=== PATIENT | male | born 1985 | race Caucasian/White ===

== ENCOUNTER → 2022-09-29 | Outpatient (CLI) | payer MEDICAID, SELFPAY ==
--- NOTE | 2022-09-29 14:47 | CT_ITS ---
STUDY: CT MAXILLOFACIAL SINUSES REASON FOR EXAM: Male, 37 years old. Right-sided facial pain. Her pain. Status post ear infection. History of prior sinus surgery. RADIATION DOSAGE (If Supplied By Facility): CTDIvol = ( 28.14 ) mGy, DLP = ( 711.01 ) mGycm TECHNIQUE: The patient was scanned in a multi detector CT scanner. High resolution axial imaging was performed without the administration of intravenous contrast material. Sagittal and coronal images were reconstructed. Individualized dose optimization techniques were used for this CT. COMPARISON: None. FINDINGS: FRONTAL SINUSES: Normal aeration, without mucosal inflammatory disease. ETHMOIDAL SINUSES: Minimal mucoperiosteal reaction in the anterior air cells. MAXILLARY SINUSES: Normal aeration, without mucosal inflammatory disease. SPHENOIDAL SINUSES: Normal aeration, without mucosal inflammatory disease. There is patency of the bilateral maxillary infundibuli with normal uncinate processes, ethmoid bullae, and hiatus semilunaris. Normal bilateral middle turbinates. Normal bilateral inferior turbinates. Normal midline nasal septum. There is patency of the bilateral nasal airways. The visualized osseous structures are normal. The visualized bilateral orbital contents are normal. Normal mastoid sinuses. CT/Sinus/Facial Bone IMPRESSION: Minimal ethmoid sinusitis. Electronically Signed: Collin Carr DO at 22:44 EST ,
== END | disposition home or self-care (01) ==
LOC: CT 14:45
PROVIDERS: Referring Provider Otolaryngology; Visit Provider Otolaryngology
DX: J32.2 Chronic ethmoidal sinusitis (principal)
CPT/HCPCS: 70486

== ENCOUNTER → 2022-11-30 | Outpatient (CLI) | payer MEDICAID, SELFPAY ==
--- NOTE | 2022-11-30 | ETH_PTH ---
PATIENT: TOM HOROWITZ LOC: [facility] U#:[id number] AGE/SX: 37/M ROOM: RE11/30/[address]: Dr. Drake Rosales MD : 1985 BED: DIS: 11/30/2022 SPEC #: [id number] RECD: 11/30/22 14:59 STATUS: MAGGIE REAlejandra #: [id number] GURDEEP: 11/30/22 00:[address]: Drake Rosales DEPT: SURGICAL PATHOLOGY RECD BY: Dale Gomes ENTERED: 12/01/22 08:39 SP TYPE: ETH TISS OTHR DR: No Primary Care Phys [facility] Tissues: A - Ethmoid sinus, NOS B - Ethmoid sinus, NOS Procedures: Decalcification bone/plaque Surgery Specimen Level IV HEADER OPERATION: Functional endoscopic sinus surgery, right myringotomy with tube PRE-OP DIAGNOSIS: Chronic sinusitis, chronic serous otitis media TISSUE SUBMITTED: A ? Right sinus contents, B ? Left sinus contents MICROSCOPIC DIAGNOSIS A. Right sinus contents: Fragments of respiratory mucosa with chronic inflammation and bone. B. Left sinus contents: Fragments of respiratory mucosa with chronic inflammation and bone. FABRIZIO:bradly 12/05/2022 MICROSCOPIC DESCRIPTION Slides are reviewed. GROSS DESCRIPTION A - Received in fixative is one container labeled with the patient's name and designated right sinus contents. The specimen consists of multiple irregular fragments of wade soft tissue mixed with fragments of bone that in aggregate measure 2.0 x 2.0 x 0.3 cm. The specimen is totally submitted in one cassette after decalcification. B - Received in fixative is one container labeled with the patient's name and designated left sinus contents. The specimen consists of multiple irregular fragments of wade soft tissue mixed with fragments of bone that in aggregate measure 2.5 x 2.5 x 0.3 cm. The specimen is totally submitted in one cassette after decalcification. / FABRIZIO:bradly 12/01/2022 TC:3 CPT: 64661 x2, 00905 x2
== END | disposition home or self-care (01) ==
LOC: LABSPEC 15:25
PROVIDERS: Referring Provider Otolaryngology; Visit Provider Otolaryngology
DX: J32.9 Chronic sinusitis, unspecified (principal); H66.90 Otitis media, unspecified, unspecified ear
CPT/HCPCS: 88305; 88311

== ENCOUNTER → 2023-10-19 | Outpatient (CLI) | payer MEDICAID, SELFPAY ==
--- OUTSIDE RECORDS SUMMARY | 2023-10-19 16:19 | XMS RPT_ITS | CCD ---
Author Name Unknown Address [address] [place] [address] Organization [facility] Care Team Providers Care Logging Supervisor Name Role Phone Chet Amin Unavailable Unavailable Chet Amin Unavailable Unavailable Zee Anderson Unavailable Unavailable Zee Anderson MD Primary Care Provider Physician, No Pcp Primary Care Provider UnavailPONCHO Oliva Attending Unavailable PHYSICIAN, NO PCP Primary Care Unavailable Zee Anderson MD Primary Care Provider ZEE ANDERSON Primary Care Unavailable Otilia MCKEON Attending Unavailable ZEE ANDERSON Primary Care Unavailable Otilia MCKEON Referring Unavailable ZEE ANDERSON Primary Care Unavailable Otilia MCKEON Attending Unavailable SCOTT LOO Attending Unavailable HILARY ZELAYA Referring Unavailable ZEE ANDERSON Primary Care Unavailable HILARY ZELAYA Referring Unavailable ZEE ANDERSON Primary Care Unavailable ZEE ANDERSON Primary Care Unavailable Otilia MCKEON Referring Unavailable ZEE ANDERSON Primary Care Unavailable Medications Current Medications Medication Drug Class(es) Dates Sig (Normalized) Sig (Original) amoxicillin 875 mg / clavulanate 125 mg oral tablet (1 source) Penicillin-class Antibacterial Start: 08-29-2022 End: 09-08-2022 take 1 tablet by mouth twice daily amoxicillin-clav ulanic acid (AUGMENTIN) 875-125 mg per tablet Indications: Chronic purulent otitis media of right ear Take 1 tablet by mouth twice daily for 10 days. 20 tablet 0 08/29/2022 09/08/2022 Active Completed/Discontinued Medications Medication Drug Class(es) Dates Sig (Normalized) Sig (Original) atomoxetine 40 mg oral capsule (1 source) Norepinephrine Reuptake Inhibitor Start: 01-10-2022 take 1 capsule by mouth once daily atomoxetine (STRATTERA) 40 mg capsule Indications: Adult ADHD Take 1 capsule by mouth once daily. 30 capsule 1 01/10/2022 Active Problems Active Problems Problem Classification Problem Date Documented Date Episodic/Chronic Abdominal pain (1 source) Epigastric pain; Translations: [Epigastric pain] Episodic Alcohol-related disorders (11 sources) Alcohol abuse; Translations: [Alcohol abuse, uncomplicated] Onset: 02-15-2022 Chronic Alcohol-related disorders (1 source) Alcohol intoxication; Translations: [Alcohol use, unspecified with intoxication, uncomplicated] Episodic Anxiety disorders (12 sources) Mixed anxiety and depressive disorder; Translations: [Anxiety disorder, unspecified] Onset: 04-18-2019 04-18-2019 Chronic Attention-deficit, conduct, and disruptive behavior disorders (8 sources) Adult attention deficit hyperactivity disorder ; Translations: [Attention-deficit hyperactivity disorder, unspecified type] Onset: 04-19-2022 Chronic Esophageal disorders (9 sources) Gastroesophageal reflux disease; Translations: [Gastro-esophageal reflux disease without esophagitis] Onset: 06-19-2017 06-19-2017 Chronic Gastritis and duodenitis (2 sources) Unspecified chronic gastritis without bleeding; Translations: [Atrophic gastritis, without mention of hemorrhage] Onset: 01-13-2023 Chronic Other disorders of stomach and duodenum (1 source) Nonulcer dyspepsia; Translations: [Functional dyspepsia] Episodic Other ear and sense organ disorders (1 source) Excessive cerumen in ear canal ; Translations: [Impacted cerumen, right ear] Episodic Other inflammatory condition of skin (1 source) Itching of skin; Translations: [Pruritus, unspecified] Episodic Other nutritional; endocrine; and metabolic disorders (1 source) Excessive thirst; Translations: [Polydipsia] Episodic Other skin disorders (1 source) Excessive sweating; Translations: [Generalized hyperhidrosis] Episodic Otitis media and related conditions (2 sources) Chronic purulent otitis media; Translations: [Other chronic suppurative otitis media, right ear] Onset: 08-30-2022 Chronic Residual codes; unclassified (1 source) Pain; Translations: [Pain, unspecified] 05-03-2023 Episodic Residual codes; unclassified (1 source) Pain, unspecified; Translations: [Pain] Onset: 05-03-2023 Episodic Sprains and strains (1 source) Sprain of left acromioclavicular ligament; Translations: [Sprain of left acromioclavicular joint, initial encounter] 05-03-2023 Episodic Suicide and intentional self-inflicted injury (1 source) Suicidal thoughts; Translations: [Suicidal ideations] Episodic Past or Other Problems Problem Classification Problem Date Documented Date Episodic/Chronic Allergic reactions (9 sources) Environmental allergy; Translations: [Other allergy status, other than to drugs and biological substances] Onset: 02-15-2022 Episodic Bacterial infection; unspecified site (1 source) Helicobacter pylori [H. pylori] as the cause of diseases classified elsewhere; Translations: [Chronic Helicobacter pylori gastritis] Onset: 01-13-2023 Episodic Cardiac dysrhythmias (9 sources) Palpitations; Translations: [Palpitations] Onset: 06-19-2017 06-19-2017 Episodic Conditions associated with dizziness or vertigo (2 sources) Dizziness; Translations: [Dizziness and giddiness] Onset: 08-30-2022 Episodic Genitourinary symptoms and ill-defined conditions (2 sources) Increased frequency of urination; Translations: [Frequency of micturition] Onset: 08-30-2022 Episodic Other inflammatory condition of skin (1 source) Pruritus, unspecified; Translations: [Pruritus] Onset: 01-13-2023 Episodic Other nutritional; endocrine; and metabolic disorders (1 source) Polydipsia; Translations: [Polydipsia] Onset: 08-30-2022 Episodic Other screening for suspected conditions (not mental disorders or infectious disease) (2 sources) Patient encounter status; Translations: [Encounter for screening for lipoid disorders] Onset: 08-30-2022 Episodic Other skin disorders (1 source) Generalized hyperhidrosis; Translations: [Sweating increase] Onset: 08-30-2022 Episodic Otitis media and related conditions (9 sources) Chronic otitis media; Translations: [Otitis media, unspecified, unspecified ear] Onset: 05-02-2017 05-02-2017 Episodic Residual codes; unclassified (9 sources) Tobacco use and exposure - finding; Translations: [Tobacco use] Onset: 05-02-2017 05-02-2017 Episodic Residual codes; unclassified (9 sources) FH: premature coronary heart disease; Translations: [Family history of ischemic heart disease and other diseases of the circulatory system] Onset: 05-02-2017 05-02-2017 Episodic Results Test Name Value Interpretation Reference Range Facil ity Vital Signs Date Time Vital Sign Value Performing Clinician Joi colon 01-13-2023 10:38-0400 Body weight 83.46 kg NA Mckeon PA-C Work Phone: [facility] 01-13-2023 10:38-0400 Diastolic blood pressure 76 mm[Hg] NA Mckeon PA-C Work Phone: [facility] 01-13-2023 10:38-0400 Heart rate 74 /min NA Mckeon PA-C Work Phone: [facility] 01-13-2023 10:38-0400 Respiratory rate 16 /min NA Mckeon PA-C Work Phone: [facility] 01-13-2023 10:38-0400 SaO2% (BldA) [Mass fraction] 99 % NA Mckeon PA-C Work Phone: [facility] 01-13-2023 10:38-0400 Systolic blood pressure 120 mm[Hg] NA Mckeon PA-C Work Phone: [facility] 08-29-2022 08:48-0500 Body weight 80.74 kg NA Mckeon PA-C Work Phone: [facility] 08-29-2022 08:48-0500 Diastolic blood pressure 78 mm[Hg] NA Mckeon PA-C Work Phone: [facility] 08-29-2022 08:48-0500 Heart rate 76 /min NA Mckeon PA-C Work Phone: [facility] 08-29-2022 08:48-0500 Respiratory rate 18 /min NA Mckeon PA-C Work Phone: [facility] 08-29-2022 08:48-0500 SaO2% (BldA) [Mass fraction] 98 % NA Mckeon PA-C Work Phone: [facility] 08-29-2022 08:48-0500 Systolic blood pressure 118 mm[Hg] NA Mckeon PA-C Work Phone: [facility] 04-18-2022 15:36-0400 Body weight 74.84 kg NA Mckeon PA-C Work Phone: [facility] 04-18-2022 15:36-0400 Diastolic blood pressure 66 mm[Hg] NA Mckeon PA-C Work Phone: [facility] 04-18-2022 15:36-0400 Heart rate 72 /min NA Mckeon PA-C Work Phone: [facility] 04-18-2022 15:36-0400 Respiratory rate 16 /min NA Mckeon PA-C Work Phone: [facility] 04-18-2022 15:36-0400 SaO2% (BldA) [Mass fraction] 98 % NA Mckeon PA-C Work Phone: [facility] 04-18-2022 15:36-0400 Systolic blood pressure 110 mm[Hg] NA Mckeon PA-C Work Phone: [facility] 02-15-2022 14:59-0400 Body weight 73.94 kg Maxine Haagen SOFTWARE ANALYST.METAL WIRE COATING OPERATOR Work Phone: [facility] 02-15-2022 14:59-0400 Diastolic blood pressure 94 mm[Hg] Maxine Haagen SOFTWARE ANALYST.METAL WIRE COATING OPERATOR Work Phone: [facility] 02-15-2022 14:59-0400 Heart rate 72 /min Maxine Haagen SOFTWARE ANALYST.METAL WIRE COATING OPERATOR Work Phone: [facility] 02-15-2022 14:59-0400 Respiratory rate 18 /min Maxine Haagen SOFTWARE ANALYST.METAL WIRE COATING OPERATOR Work Phone: [facility] 02-15-2022 14:59-0400 SaO2% (BldA) [Mass fraction] 97 % Maxine Haagen SOFTWARE ANALYST.METAL WIRE COATING OPERATOR Work Phone: [facility] 02-15-2022 14:59-0400 Systolic blood pressure 142 mm[Hg] Maxine Haagen SOFTWARE ANALYST.METAL WIRE COATING OPERATOR Work Phone: [facility] 01-17-2022 07:12-0400 Diastolic blood pressure 64 mm[Hg] Poncho Jasso MD Work Phone: [facility] 01-17-2022 07:12-0400 Heart rate 94 /min Poncho Jasso MD Work Phone: [facility] 01-17-2022 07:12-0400 Respiratory rate 15 /min Poncho Jasso MD Work Phone: [facility] 01-17-2022 07:12-0400 SaO2% (BldA) [Mass fraction] 98 % Poncho Jasso MD Work Phone: [facility] 01-17-2022 07:12-0400 Systolic blood pressure 123 mm[Hg] Poncho Jasso MD Work Phone: [facility] 01-16-2022 22:59-0400 Body height 177.8 cm Poncho Jasso MD Work Phone: [facility] 01-16-2022 22:59-0400 Body mass index (BMI) [Ratio] 23.53 kg/m2 Poncho Jasso MD Work Phone: [facility] 01-16-2022 22:59-0400 Body weight 74.39 kg Poncho Jasso MD Work Phone: [facility] 01-16-2022 21:57-0400 Body temperature 97.81 [degF] Poncho Jasso MD Work Phone: [facility] 01-10-2022 09:43-0400 Body weight 74.39 kg Maxine Mares SOFTWARE ANALYST.METAL WIRE COATING OPERATOR Work Phone: [facility] 01-10-2022 09:43-0400 Diastolic blood pressure 86 mm[Hg] Maxine Haagen SOFTWARE ANALYST.METAL WIRE COATING OPERATOR Work Phone: [facility] 01-10-2022 09:43-0400 Heart rate 86 /min Maxine Haagen SOFTWARE ANALYST.METAL WIRE COATING OPERATOR Work Phone: [facility] 01-10-2022 09:43-0400 Respiratory rate 18 /min Maxine Haagen SOFTWARE ANALYST.METAL WIRE COATING OPERATOR Work Phone: [facility] 01-10-2022 09:43-0400 SaO2% (BldA) [Mass fraction] 98 % Maxine Mares SOFTWARE ANALYST.METAL WIRE COATING OPERATOR Work Phone: [facility] 01-10-2022 09:43-0400 Systolic blood pressure 118 mm[Hg] Maxine Mares SOFTWARE ANALYST.METAL WIRE COATING OPERATOR Work Phone: [facility] Encounters Encounter Date Encounter Type Care Provider Facility Start: 05-03-2023 End: 05-03-2023 ambulatory SCOTT HAWKINS Harjinder Facility:[facility] Start: 05-03-2023 End: 05-03-2023 Patient encounter procedure Scott Ross LANDRY Work Phone: [facility] Procedures Date Procedure Procedure Detail Performing Clinician Start: 08-29-2022 Urnls dip stick/tabl et rgnt auto w/o microscopy M Hakan Mckeon PA-C Work Phone: Start: 01-16-2022 Drug tst prsmv instr mnt chem analyzers pr date Poncho Jasso MD Work Phone: Start: 01-16-2022 ACETAMINOPHEN LEVEL Jose De Jesus shauna Jasso MD Work Phone: Start: 01-16-2022 Comprehensive metabo lic panel Poncho Jasso MD Work Phone: Start: 01-16-2022 Ethanol [Mass/volume ] in Serum or Plasma Poncho Jasso MD Work Phone: Start: 01-16-2022 SALICYLATE LEVEL Gerard Jasso MD Work Phone: Plan of Treatment Date Care Activity Detail Author Start: 06-20-2028 DTaP,Tdap,and Td Vac cines (2 - Td or Tdap) DTaP,Tdap,and Td Vaccines (2 - Td or Tdap) [facility] Start: 08-30-2027 LIPID SCREEN LIPID SCREEN [facility] Start: 06-02-2023 Influenza vaccination [facility] Start: 01-13-2023 End: 03-15-2023 Comprehensive metabolic 2000 panel - Serum or Plasma [facility] Work Phone: Immunizations Immunization Date Immunization Notes Care Provider Skinny hinds 06-20-2018 tetanus and diphther ia toxoids, adsorbed, preservative free, for adult use (5 Lf of tetanus toxoid and 2 Lf of diphtheria toxoid) Maxine Mares APRN.METAL WIRE COATING OPERATOR Work Phone: [facility] 06-05-2014 TD(adult) unspecifie d formulation RICHARD Mckeon PA-C Work Phone: [facility] Payers Date Payer Category Payer Medicaid [id number] 2022 Medicaid [employer] [id number] 2022-Present [phone] [address] [place] [address] Medicaid [id number] 2022 Medicaid [id number] 2022 Medicaid [id number] 2018 Unknown 1986 Unknown [id number] Private Health Insurance [id number] Social History Date Type Detail Facility Start: 04-18-2019 End: 08-29-2022 Tobacco smoking status GAIS Smokes tobacco daily [facility] Work Phone: History of tobacco use Cigarette Smoker C [facility] Work Phone: Start: 04-18-2019 End: 10-14-2022 Cigarettes smoked current (pack per day) - Reported 1 [facility] Start: 04-18-2019 End: 08-29-2022 Tobacco use and exposure User of smokeless tobacco [facility] Work Phone: History of tobacco use Chews Tobacco [facility] Work Phone: Start: 01-10-2022 End: 05-03-2023 Alcohol intake Current drinker of alcohol (finding) [facility] Start: 10-06-2021 History SDOH Alcohol Comment less than a 12 pk weekly [facility] Start: 01-10-2022 End: 08-29-2022 Tobacco Comment quit smoking 11/2021. [facility] Start: 1985 Sex Assigned At Not on file C [facility] Start: 01-16-2022 Tobacco use and exposure Smokeless tobacco non-user [facility] Start: 01-16-2022 Alcohol intake Not Asked [facility] Start: 01-06-2022 End: 08-29-2022 Exposure to SARS-CoV-2 (event) Not sure [facility] Start: 10-14-2022 End: 05-03-2023 Tobacco use panel [facility] Adult Depression Screening Assessment 2 [facility] Clinical Notes 01-10-2022 to 05-03-2023 Scott Hawkins V, DO - 05/03/2023 3:22 PM KAREENTangela atkinson Ma 05/03/2023 3:04 PM ED Hakan Mckeon PA-C - 01/13/2023 10:43 AM EDMICHEAL Mckeon PA-C - 08/29/2022 8:53 AM EST Note Date & Type Note Facility 05-03-2023 Note HNO ID: [id number] Author: Scott Hawkins V, DO Service: ? Author Type: Physician Type: Progress Notes Filed: 05/03/2023 3:24 PM Note Text: SUBJECTIVE: Mg Glover is a 38 year old male who is here for a left shoulder injury. It occurred 1 1/2 weeks ago when he fell onto the top of the shoulder. Symptoms include pain over the top of the shoulder with movement. He has tried icy hot. PAST MEDICAL HISTORY Diagnosis Date H. pylori infection 10/18/2019 treated. Stool negative 11/12/19 PAST SURGICAL HISTORY Procedure Laterality Date EGD 11/17/2021 PAST SURGICAL HISTORY OF myringotomy tubes. EXAM: General: cooperative and NAD Location: Left shoulder: tenderness at the AC joint with direct palpation and with resisted shoulder abduction internal rotation and posterior extension. Negative for: crepitation or instability Neurovascular: intact X-ray: no evidence of fracture or acute abnormality IMPRESSION: AC sprain left shoulder PLAN: Continue with range of motion and strengthening exercises as well as symptomatic relief with topical analgesics. Expect 4 to 6 weeks for full healing Recheck if symptoms worsen or fail to resolve Scott Hawkins DO [facility] 05-03-2023 Note HNO ID: [id number] Author: Tangela Ontiveros Ma Service: ? Author Type: ? Type: Progress Notes Filed: 05/03/2023 3:24 PM Note Text: Patient presents with: New Patient: Left shoulder pain - Referred by Hilary ERAZO ROOMING INTAKE FLOWSHEET DATA Pain Pain Level: 6 Pain Location: Shoulder-Left Description: Aching Duration Amount of Time: 10 Duration Units: Days Frequency: Continuous Intervention/Comfort measure: Medication Patient states 10 days ago he started having pain in his left shoulder. He noticed he has a lump on top of his shoulder. Mornings are worse but gets better as the day goes on. He also has had shoulder blade pain that started 5/6 years. No specific injuries. Taking Ibuprofen for the pain and helps. X-rays done on 05/02/23. [facility] 05-03-2023 History of Presen t illness Narrative SUBJECTIVE: Mg Glover is a 38 year old male who is here for a left shoulder injury. It occurred 1 1/2 weeks ago when he fell onto the top of the shoulder. Symptoms include pain over the top of the shoulder with movement. He has tried icy hot. PAST MEDICAL HISTORY Diagnosis Date H. pylori infection 10/18/2019 treated. Stool negative 11/12/19 PAST SURGICAL HISTORY Procedure Laterality Date EGD 11/17/2021 PAST SURGICAL HISTORY OF myringotomy tubes. EXAM: General: cooperative and NAD Location: Left shoulder: tenderness at the AC joint with direct palpation and with resisted shoulder abduction internal rotation and posterior extension. Negative for: crepitation or instability Neurovascular: intact X-ray: no evidence of fracture or acute abnormality IMPRESSION: AC sprain left shoulder PLAN: Continue with range of motion and strengthening exercises as well as symptomatic relief with topical analgesics. Expect 4 to 6 weeks for full healing Recheck if symptoms worsen or fail to resolve Scott Hawkins DO Patient presents with: New Patient: Left shoulder pain - Referred by Hilary Zelaya AMB ROOMING INTAKE FLOWSHEET DATA Pain Pain Level: 6 Pain Location: Shoulder-Left Description: Aching Duration Amount of Time: 10 Duration Units: Days Frequency: Continuous Intervention/Comfort measure: Medication Patient states 10 days ago he started having pain in his left shoulder. He noticed he has a lump on top of his shoulder. Mornings are worse but gets better as the day goes on. He also has had shoulder blade pain that started 5/6 years. No specific injuries. Taking Ibuprofen for the pain and helps. X-rays done on 05/02/23. documented in this encounter [facility] 05-02-2023 Note HNO ID: [id number] Author: Hilary Zelaya APRN.METAL WIRE COATING OPERATOR Service: ? Author Type: Nurse Practitioner Type: Progress Notes Filed: 05/02/2023 5:56 PM Note Text: Subjective Patient came in with complaints of left shoulder pain. Patient says it happens a week and a half ago. Patient says he fell off the truck and landed on his shoulder. Patient says it only hurts in certain positions. Patient denies numbness tingling or loss of feeling. The history is provided by the patient. No foreign language stenographer was used. Review of Systems Constitutional: Negative. Skin: Negative. Objective Physical Exam Constitutional: Appearance: Normal appearance. Pulmonary: Effort: Pulmonary effort is normal. Musculoskeletal: Arms: Comments: Patient is experiencing the pain in the areas marked above. No signs of deformity. Patient passed empty can test but failed scratch test. Range of motion is normal but patient experiences pain when shoulder is lifted completely up. Neurological: Mental Status: He is alert. PAST MEDICAL HISTORY Diagnosis Date H. pylori infection 10/18/2019 treated. Stool negative 11/12/19 PAST SURGICAL HISTORY Procedure Laterality Date EGD 11/17/2021 PAST SURGICAL HISTORY OF myringotomy tubes. ALLERGIES Patient has no known allergies. MEDICATIONS citalopram (CELEXA) 20 mg tablet 1 tablet by mouth daily pantoprazole DR (PROTONIX) 40 mg tablet Take 1 tablet by mouth daily before breakfast. Take on empty stomach, 1/2 hr before meal. FAMILY HISTORY Problem Relation Age of Onset None Mother other (cabg) Father started at age ? 50. None Brother 2 brothers. Social History Tobacco Use Smoking status: Every Day Packs/day: 1.00 Years: 15.00 Total pack years: 15.00 Types: Cigarettes Smokeless tobacco: Current Types: Chew Tobacco comments: quit smoking 11/2021. Substance Use Topics Alcohol use: Yes Comment: less than a 12 pk weekly Drug use: No ASSESSMENT/PLAN: 1. Pain - ICD9: 780.96, ICD10: R52 - XR SHOULDER GENERAL 3V OR MORE AP/TRUE AP/OTHER LEFT * * * * Physician Interpretation * * * * EXAMINATION: XR SHLDR >/=3V AP/ANGELITO AP/OTHR LT PATIENT/TECHNOLOGIST PROVIDED HISTORY: Pain over the AC joint and scapula on the left side following a fall 1.5 weeks ago CLINICAL INFORMATION: 38 years old Male with Pain TECHNIQUE: XR SHLDR >/=3V AP/ANGELITO AP/OTHR LT Laterality: LEFT Number of different views (projections): 3 COMPARISON: None. RESULT: No fracture or dislocation. Glenohumeral and acromioclavicular joint spaces are maintained. Acromiohumeral interval is maintained. IMPRESSION IMPRESSION: No acute osseous abnormality. Director Style: DARIUS Transcribe Date/Time: May 02 2023 5:26P Dictated by : BESS MCMANUS DO - CONSULT TO ORTHOPAEDICS Appointment was made for tomorrow at 3 PM with orthopedics to follow-up for possible further testing due to pain. Was okay with this care plan. Hilary Zelaya APRN.[facility] 05-02-2023 Note HNO ID: [id number] Author: Myranda Beltran RT(R) Service: Radiology Author Type: Technologist Type: Progress Notes Filed: 05/02/2023 5:23 PM Note Text: Radiology Service Progress Note PATIENT NAME: Mg Glover DATE OF SERVICE: May 02, 2023 TIME: 5:13 PM PATIENT IDENTITY VERIFICATION COMPLETED USING TWO (2) IDENTIFIERS: Name and Date of confirmed by patient verbally. FALL SCREENING: Has the patient had 2 falls in the last year or 1 fall with injury or currently using an Ambulatory Assistive Device (Walker, Cane, Wheelchair, Crutches, etc.)? No PATIENT GENDER DATA: Male PATIENT RELEVANT IMPLANT DATA REVIEWED: Yes RADIOLOGY DEPARTMENT: General X-ray: Exam(s) Completed: Upper Extremity X-Ray(s): Shoulder, AP / TRUE AP / AXILLARY left PERIPHERAL IV DATA: Not applicable SIGNED BY: RT Shaggy(R) May 02, 2023 5:13 PM [facility] 01-13-2023 Note HNO ID: [id number] Author: Otilia Mckeon PA-C Service: ? Author Type: Physician Safety Patrol Officer Type: Progress Notes Filed: 01/13/2023 11:56 AM Note Text: 37 year old male with c/o itching with whole body skin irritation. Feeling hungry all the time Always has gurgling in stomach, feels nauseated. Bowels have changed, 3-4 times, soft, mushy, small amount, snot in it . Feels like he gets faint like he might pass out, especially at wok with bending over a lot. Happened in 2019 Taking benadryl 25mg four times a day which lessens feeling At first thought it was allergies. No sinus congestion. A little sneezing. Recent sinus surgery [facility] Dr. Patton No cough or difficulty breathing Urinates frequently: 6 x 24oz bottle of water ETOH under 12pk a week. Itching is more with moving around. Last time this happened ended up testing + H.Pylori: 11/12/2019 H. Pylori negative, 10/18/2019 + H. Pylori Remains on pantoprazole daily, sometimes twice a day Feeling good emotionally. Taking Celexa 20mg daily HISTORIES FAMILY HISTORY Problem Relation Age of Onset None Mother other (cabg) Father started at age ? 50. None Brother 2 brothers. PAST MEDICAL HISTORY Diagnosis Date H. pylori infection 10/18/2019 treated. Stool negative 11/12/19 PAST SURGICAL HISTORY Procedure Laterality Date EGD 11/17/2021 PAST SURGICAL HISTORY OF myringotomy tubes. Social History Tobacco Use Smoking status: Every Day Packs/day: 1.00 Years: 15.00 Pack years: 15.00 Types: Cigarettes Smokeless tobacco: Current Types: Chew Tobacco comments: quit smoking 11/2021. Substance Use Topics Alcohol use: Yes Comment: less than a 12 pk weekly Drug use: No ACTIVE PROBLEM LIST Chronic Otitis Media Tobacco Use Family History of Early Cad Palpitations Gastroesophageal Reflux Disease Anxiety and Depression Alcohol Abuse Environmental Allergies Adult Adhd Current Outpatient Medications Medication Sig Dispense Refill citalopram (CELEXA) 20 mg tablet 1 tablet by mouth daily [address] (PROTONIX) 40 mg tablet Take 1 tablet by mouth daily before breakfast. Take on empty stomach, 1/2 hr before meal. 90 tablet 2 No current facility-administered medications for this visit. HEPATITIS B(1 of 3 - 3-dose series) Never done COVID-19 VACCINE(1) Never done PNEUMOCOCCAL(1 - PCV) Never done HEPATITIS C SCREENING Never done HIV SCREENING Never done DTAP,TDAP,TD(1 - Tdap) due on 06/21/2018 EXAM: BP 120/76 Pulse 74 Resp 16 Wt 83.5 kg (184 lb) SpO2 99% BMI 26.40 kg/m? Pleasant well appearing adult male in no acute distress. Alert and oriented all spheres. Normal affect and cognition. Speech normal. No deficits to learning or comprehension. Skin warm, dry, pink to lips and nailbeds. Normal turgor. No rashes or lesions. Respirations regular and unlabored. HEENT: NCAT. No scleral icterus or conjunctival injection. TM's clear. Nose and oropharynx free from injection or lesion. Oral membranes moist and pink. No cervical lymph nodes. Thyroid non-tender, no masses, or enlargement. Carotids pulses 2+/4+ without bruits. No JVD with HOB at 30 degrees. Abdomen: active bowel sounds throughout, soft, nontender, no masses or organomegaly. No CVAT. Extrem: no clubbing or cyanosis. Edema: none. Extremities are warm and pink with prompt capillary refill. ASSESSMENT/PLAN: 1. Pruritus - ICD9: 698.9, ICD10: L29.9 (primary diagnosis) Unclear etiology Controled with benadryl: discussed once a day antihistamines available but will continue current. Identifies association with H.Pylori in past with above GI sx. Check labs and proceed based on results. - CBC + DIFF - COMP METABOLIC PANEL - LIPASE BLD - IGE BLD - H PYLORI AG BY EIA,STOOL - OCCULT BLD EXAM-DIAG - FECAL LACTOFERRIN/LEUKOCYTES - CALPROTECTIN,FECAL 2. Chronic Helicobacter pylori gastritis - ICD9: 535.10, 041.86, ICD10: K29.50, B96.81 As above - CBC + DIFF - COMP METABOLIC PANEL - LIPASE BLD - IGE BLD - H PYLORI AG BY EIA,STOOL - OCCULT BLD EXAM-DIAG - FECAL LACTOFERRIN/LEUKOCYTES - CALPROTECTIN,FECAL M Hakan Mckeon PA-C [facility] 01-13-2023 History of Presen t illness Narrative 37 year old male with c/o itching with whole body skin irritation. Feeling hungry all the time Always has gurgling in stomach, feels nauseated. Bowels have changed, 3-4 times, soft, mushy, small amount, snot in it . Feels like he gets faint like he might pass out, especially at wok with bending over a lot. Happened in 2019 Taking benadryl 25mg four times a day which lessens feeling At first thought it was allergies. No sinus congestion. A little sneezing. Recent sinus surgery [facility] Dr. Patton No cough or difficulty breathing Urinates frequently: 6 x 24oz bottle of water ETOH under 12pk a week. Itching is more with moving around. Last time this happened ended up testing + H.Pylori: 11/12/2019 H. Pylori negative, 10/18/2019 + H. Pylori Remains on pantoprazole daily, sometimes twice a day Feeling good emotionally. Taking Celexa 20mg daily HISTORIES FAMILY HISTORY Problem Relation Age of Onset None Mother other (cabg) Father started at age ? 50. None Brother 2 brothers. PAST MEDICAL HISTORY Diagnosis Date H. pylori infection 10/18/2019 treated. Stool negative 11/12/19 PAST SURGICAL HISTORY Procedure Laterality Date EGD 11/17/2021 PAST SURGICAL HISTORY OF myringotomy tubes. Social History Tobacco Use Smoking status: Every Day Packs/day: 1.00 Years: 15.00 Pack years: 15.00 Types: Cigarettes Smokeless tobacco: Current Types: Chew Tobacco comments: quit smoking 11/2021. Substance Use Topics Alcohol use: Yes Comment: less than a 12 pk weekly Drug use: No ACTIVE PROBLEM LIST Chronic Otitis Media Tobacco Use Family History of Early Cad Palpitations Gastroesophageal Reflux Disease Anxiety and Depression Alcohol Abuse Environmental Allergies Adult Adhd Current Outpatient Medications Medication Sig Dispense Refill citalopram (CELEXA) 20 mg tablet 1 tablet by mouth daily [address] (PROTONIX) 40 mg tablet Take 1 tablet by mouth daily before breakfast. Take on empty stomach, 1/2 hr before meal. 90 tablet 2 No current facility-administered medications for this visit. HEPATITIS B(1 of 3 - 3-dose series) Never done COVID-19 VACCINE(1) Never done PNEUMOCOCCAL(1 - PCV) Never done HEPATITIS C SCREENING Never done HIV SCREENING Never done DTAP,TDAP,TD(1 - Tdap) due on 06/21/2018 EXAM: BP 120/76 Pulse 74 Resp 16 Wt 83.5 kg (184 lb) SpO2 99% BMI 26.40 kg/m Pleasant well appearing adult male in no acute distress. Alert and oriented all spheres. Normal affect and cognition. Speech normal. No deficits to learning or comprehension. Skin warm, dry, pink to lips and nailbeds. Normal turgor. No rashes or lesions. Respirations regular and unlabored. HEENT: NCAT. No scleral icterus or conjunctival injection. TM's clear. Nose and oropharynx free from injection or lesion. Oral membranes moist and pink. No cervical lymph nodes. Thyroid non-tender, no masses, or enlargement. Carotids pulses 2+/4+ without bruits. No JVD with HOB at 30 degrees. Abdomen: active bowel sounds throughout, soft, nontender, no masses or organomegaly. No CVAT. Extrem: no clubbing or cyanosis. Edema: none. Extremities are warm and pink with prompt capillary refill. ASSESSMENT/PLAN: 1. Pruritus - ICD9: 698.9, ICD10: L29.9 (primary diagnosis) Unclear etiology Controled with benadryl: discussed once a day antihistamines available but will continue current. Identifies association with H.Pylori in past with above GI sx. Check labs and proceed based on results. - CBC + DIFF - COMP METABOLIC PANEL - LIPASE BLD - IGE BLD - H PYLORI AG BY EIA,STOOL - OCCULT BLD EXAM-DIAG - FECAL LACTOFERRIN/LEUKOCYTES - CALPROTECTIN,FECAL 2. Chronic Helicobacter pylori gastritis - ICD9: 535.10, 041.86, ICD10: K29.50, B96.81 As above - CBC + DIFF - COMP METABOLIC PANEL - LIPASE BLD - IGE BLD - H PYLORI AG BY EIA,STOOL - OCCULT BLD EXAM-DIAG - FECAL LACTOFERRIN/LEUKOCYTES - CALPROTECTIN,FECAL Otilia Mkceon PA-C documented in this encounter [facility] 09-28-2022 Miscellaneous Notes Patient phones requesting refills as follows: Requested Prescriptions Pending Prescriptions Disp Refills citalopram (CELEXA) 20 mg tablet 90 tablet 1 Si tablet by mouth daily CHARY-08/29/22 Labs-08/30/22 NOV-none med filled 02/15/22 Please review and advise. Virginia Humphries LPN documented in this encounter [facility] 09-28-2022 Miscellaneous Notes Patient phones requesting refills as follows: Patient comment: Could i get a 90 day supply on that it's only a few more dollars for 60 more pills please Requested Prescriptions Pending Prescriptions Disp Refills pantoprazole DR (PROTONIX) 40 mg tablet 30 tablet 2 Sig: Take 1 tablet by mouth daily before breakfast. Take on empty stomach, 1/2 hr before meal. CHARY-08/29/22 Labs-08/30/22 NOV-none med filled 04/18/22 Please review and advise. Virginia Humphries LPN documented in this encounter [facility] 08-29-2022 Note HNO ID: [id number] Author: Otilia Mckeon PA-C Service: ? Author Type: Physician Safety Patrol Officer Type: Progress Notes Filed: 08/29/2022 10:23 AM Note Text: 37 year old male with c/o: Ear aches x 1 month. Reports his ears are always getting infected and he always has ear aches since he was little. Had surgery on both ears 5 years ago which seemed to help. PE tubes bilateral, rhinoplasty with balloon: Dr. Patton. Right ear: having trouble hearing, everything sounds muffled. Throughout the day it is constantly getting clogged and he has to unclog them to hear again. Left ear: Feels like there is something in there , but he can hear fine out of it. No ear pain, tinnitus, fever/chills, sinus pain, rhinorrhea, or headaches. Has tried putting peroxide in his ears and Q-tips with no relief. Has not tried any medications. Dizziness and nauseous x1-2 months Reports occasional dizziness that make him feel like he is going to pass out. Has never passed out. Episodes occur a few times per week with associated nausea, hot flashes, and irritability. He notices they occur when he starts to work. Episodes go away when he sits down and relax. Also notices these occur when he gets out of bed too quickly. Has tried eating a snack when these episodes occur which helps sometimes. Frequency x2-3 months Has to urinate every 45 minutes, urine is usually clear. Feeling more thirsty than usual and a dry mouth. Drinks a cup of coffee in the morning and a few glasses of water/gatorade throughout the day. Some nights he urinates 3-4x a night. FH + DM in F HISTORIES FAMILY HISTORY Problem Relation Age of Onset None Mother other (cabg) Father started at age ? 50. None Brother 2 brothers. PAST MEDICAL HISTORY Diagnosis Date H. pylori infection 10/18/2019 treated. Stool negative 11/12/19 PAST SURGICAL HISTORY Procedure Laterality Date EGD 11/17/2021 PAST SURGICAL HISTORY OF myringotomy tubes. Social History Tobacco Use Smoking status: Every Day Packs/day: 1.00 Years: 15.00 Pack years: 15.00 Types: Cigarettes Smokeless tobacco: Current Types: Chew Tobacco comments: quit smoking 11/2021. Substance Use Topics Alcohol use: Yes Comment: less than a 12 pk weekly Drug use: No ACTIVE PROBLEM LIST Chronic Otitis Media Tobacco Use Family History of Early Cad Palpitations Gastroesophageal Reflux Disease Anxiety and Depression Alcohol Abuse Environmental Allergies Adult Adhd Current Outpatient Medications Medication Sig Dispense Refill pantoprazole DR (PROTONIX) 40 mg tablet Take 1 tablet by mouth daily before breakfast. Take on empty stomach, 1/2 hr before meal. 30 tablet 2 citalopram (CELEXA) 20 mg tablet 1 tablet by mouth daily 90 tablet 1 No current facility-administered medications for this visit. HEPATITIS B(1 of 3 - 3-dose series) Never done COVID-19 VACCINE(1) Never done PNEUMOCOCCAL(1 - PCV) Never done HEPATITIS C SCREENING Never done HIV SCREENING Never done DTAP,TDAP,TD(1 - Tdap) due on 06/21/2018 LIPID SCREEN due on 05/23/2022 INFLUENZA(1) due on 06/02/2022 REVIEW OF SYSTEMS GENERAL: No weight loss, malaise or fevers HEENT: Negative for frequent or significant headaches, No changes in hearing or vision, no nose bleeds or other nasal problems, SEE HPI NECK: Negative for lumps, goiter, pain and significant neck swelling RESPIRATORY: Negative for cough, hemoptysis, wheezing, COPD, dyspnea or shortness of breath CARDIOVASCULAR: Negative for chest pain, leg swelling, hypertension, CHF or palpitations GI: No nausea, vomiting, or diarrhea and Positive for heart burn every day EXAM: BP 118/78 Pulse 76 Resp 18 Wt 80.7 kg (178 lb) SpO2 98% BMI 25.54 kg/m? BP w/Orthostatic Vitals Date and Time Orthostatic BP Orthostatic Pulse BP Pulse BP Position BP Site BP Cuff Size 08/29/22 0938 150/100 72 -- -- Standing Left Arm Regular Adult 08/29/22 0937 150/90 72 -- -- Supine Left Arm Regular Adult 08/29/22 0848 -- -- 118/78 76 -- -- -- Peak Flow Date and Time PF Resp 08/29/22 0848 -- 18 Pleasant well young man in no acute distress. Alert and oriented all spheres. Normal affect and cognition. Speech normal. No deficits to learning or comprehension. Skin warm, dry, pink to lips and nailbeds. Normal turgor. Respirations regular and unlabored. HEENT: NCAT. No scleral icterus or conjunctival injection. Right TM with purulent effusion. Left TM is gunter with scarring. Christensen-Rhinne' with lateralization no lateralization, AC>BC bilaterally. Nose and oropharynx free from injection or lesion. Oral membranes moist and pink. No cervical lymph nodes. Thyroid non-tender, no masses, or enlargement. Carotids pulses 2+/4+ without bruits. No JVD with HOB at 30 degrees. Extrem: no clubbing or cyanosis. Edema: none. Extremities are warm and pink with prompt capillary refill. No focal neuro deficits. Gait and balance no (more content not included)... [facility] 08-29-2022 History of Presen t illness Narrative 37 year old male with c/o: Ear aches x 1 month. Reports his ears are always getting infected and he always has ear aches since he was little. Had surgery on both ears 5 years ago which seemed to help. PE tubes bilateral, rhinoplasty with balloon: Dr. Patton. Right ear: having trouble hearing, everything sounds muffled. Throughout the day it is constantly getting clogged and he has to unclog them to hear again. Left ear: Feels like there is something in there , but he can hear fine out of it. No ear pain, tinnitus, fever/chills, sinus pain, rhinorrhea, or headaches. Has tried putting peroxide in his ears and Q-tips with no relief. Has not tried any medications. Dizziness and nauseous x1-2 months Reports occasional dizziness that make him feel like he is going to pass out. Has never passed out. Episodes occur a few times per week with associated nausea, hot flashes, and irritability. He notices they occur when he starts to work. Episodes go away when he sits down and relax. Also notices these occur when he gets out of bed too quickly. Has tried eating a snack when these episodes occur which helps sometimes. Frequency x2-3 months Has to urinate every 45 minutes, urine is usually clear. Feeling more thirsty than usual and a dry mouth. Drinks a cup of coffee in the morning and a few glasses of water/gatorade throughout the day. Some nights he urinates 3-4x a night. FH + DM in F HISTORIES FAMILY HISTORY Problem Relation Age of Onset None Mother other (cabg) Father started at age ? 50. None Brother 2 brothers. PAST MEDICAL HISTORY Diagnosis Date H. pylori infection 10/18/2019 treated. Stool negative 11/12/19 PAST SURGICAL HISTORY Procedure Laterality Date EGD 11/17/2021 PAST SURGICAL HISTORY OF myringotomy tubes. Social History Tobacco Use Smoking status: Every Day Packs/day: 1.00 Years: 15.00 Pack years: 15.00 Types: Cigarettes Smokeless tobacco: Current Types: Chew Tobacco comments: quit smoking 11/2021. Substance Use Topics Alcohol use: Yes Comment: less than a 12 pk weekly Drug use: No ACTIVE PROBLEM LIST Chronic Otitis Media Tobacco Use Family History of Early Cad Palpitations Gastroesophageal Reflux Disease Anxiety and Depression Alcohol Abuse Environmental Allergies Adult Adhd Current Outpatient Medications Medication Sig Dispense Refill pantoprazole DR (PROTONIX) 40 mg tablet Take 1 tablet by mouth daily before breakfast. Take on empty stomach, 1/2 hr before meal. 30 tablet 2 citalopram (CELEXA) 20 mg tablet 1 tablet by mouth daily 90 tablet 1 No current facility-administered medications for this visit. HEPATITIS B(1 of 3 - 3-dose series) Never done COVID-19 VACCINE(1) Never done PNEUMOCOCCAL(1 - PCV) Never done HEPATITIS C SCREENING Never done HIV SCREENING Never done DTAP,TDAP,TD(1 - Tdap) due on 06/21/2018 LIPID SCREEN due on 05/23/2022 INFLUENZA(1) due on 06/02/2022 REVIEW OF SYSTEMS GENERAL: No weight loss, malaise or fevers HEENT: Negative for frequent or significant headaches, No changes in hearing or vision, no nose bleeds or other nasal problems, SEE HPI NECK: Negative for lumps, goiter, pain and significant neck swelling RESPIRATORY: Negative for cough, hemoptysis, wheezing, COPD, dyspnea or shortness of breath CARDIOVASCULAR: Negative for chest pain, leg swelling, hypertension, CHF or palpitations GI: No nausea, vomiting, or diarrhea and Positive for heart burn every day EXAM: BP 118/78 Pulse 76 Resp 18 Wt 80.7 kg (178 lb) SpO2 98% BMI 25.54 kg/m BP w/Orthostatic Vitals Date and Time Orthostatic BP Orthostatic Pulse BP Pulse BP Position BP Site BP Cuff Size 08/29/2238 150/100 72 -- -- Standing Left Arm Regular Adult 08/29/22 0937 150/90 72 -- -- Supine Left Arm Regular Adult 08/29/22847 -- -- 118/78 76 -- -- -- Peak Flow Date and Time PF Resp 08/29/22847 -- 18 Pleasant well young man in no acute distress. Alert and oriented all spheres. Normal affect and cognition. Speech normal. No deficits to learning or comprehension. Skin warm, dry, pink to lips and nailbeds. Normal turgor. Respirations regular and unlabored. HEENT: NCAT. No scleral icterus or conjunctival injection. Right TM with purulent effusion. Left TM is gunter with scarring. Christensen-Rhinne' with lateralization no lateralization, AC>BC bilaterally. Nose and oropharynx free from injection or lesion. Oral membranes moist and pink. No cervical lymph nodes. Thyroid non-tender, no masses, or enlargement. Carotids pulses 2+/4+ without bruits. No JVD with HOB at 30 degrees. Extrem: no clubbing or cyanosis. Edema: none. Extremities are warm and pink with prompt capillary refill. No focal neuro deficits. Gait and balance normal. Negative Romberg, [place]. Component Latest Ref Rng & Units 08/29/2022 GLUCOSE UA (POCT) Negative mg/dL Negative BILIRUBIN UA (POCT) Negative Negative KETONE UA (POCT) Negative mg/dL Negative SPECIFIC GRAVITY UA (POCT) 1.005 - 1.030 1.015 HEMOGLOBIN/BLOOD UA (POCT) Negative Negative PH UA (POCT) 4.5 - 8.0 7.0 PROTEIN UA (POCT) Negative mg/dL Negative UROBILINOGEN UA (POCT) Normal E.U./dL 0.2 NITRITE UA (POCT) Negative Negative LEUKOCYTES UA (POCT) Negative Negative COLOR UA (POCT) Yellow CLARITY UA (POCT) Clear ASSESSMENT/PLAN: 1. Chronic purulent otitis media of right ear - ICD9: 382.3, ICD10: H66.3X1 (primary diagnosis) - AMOXICILLIN 875 MG-POTASSIUM CLAVULANATE 125 MG TABLET - CONSULT TO ENT - BASIC METABOLIC PNL - CBC 2. Dizziness - ICD9: 780.4, ICD10: R42 - CONSULT TO ENT - BASIC METABOLIC PNL - CBC 3. Polydipsia - ICD9: 783.5, ICD10: R63.1 - BASIC METABOLIC PNL - CBC - UA DIP B/O 4. Urinary frequency - ICD9: 788.41, ICD10: R35.0 acute - Patient education for prevention given - BASIC METABOLIC PNL - CBC - UA DIP B/O 5. Screening for lipid disorders - ICD9: V77.91, ICD10: Z13.220 - LIPID PANEL BASIC Otilia Mckeon PA-C documented in this encounter [facility] 06-02-2022 Miscellaneous Notes Pulling sensation in side when lifting is still there. Feeling better. He is going to the bathroom more. Increased water intake. The hot sweats and feeling like he is going to pass out has improved Numbness in hands is still present. Please call and ask how stomach is doing on increased dose of 40mg protonix daily. Thanks, Quentin Mckeon PA-C documented in this encounter [facility] 04-18-2022 History of Presen t illness Narrative 36 year old male with c/o follow up on depression and ETOH abuse Anxiety with depression (primary encounter diagnosis) Alcohol abuse Adult adhd Recent history: 01/16/2022 ED visit [facility]: presented intoxicated acknowledging suicidal ideation (fantasy of hanging himself with a chain), acknowledged chronic alcoholism at 15 beers/ day Ethanol level 276, urine tox screen negative Current medications: Citalopram 20mg daily Change in medication Yes. Increased citalopram to 20mg Last visit: Maxine Mares CNP. Identifies easier falling asleep, feeling a little more social. Continues to stay sober Currently in counseling? Yes. Local counseling office [facility], with Max- recently dstopped Any Medication side effects? Yes. Wakes up tired. Feels tired a lot. Resorts to caffeine which he knows isn't good. Feels numbness in forearms, legs intermittently driving or getting up in [facility], laying down and holding something. Not drinking during the weekdays. 6 pack over the weekend. Caffeine 10oz coffee in the morning, C4 and red Bull 2 a day. Sleep disturbance? No. Sleep through the night. Tired on waking. Snores. Sometimes disrutively Loss of interest in usual pleasurable activities?No. Sense of guilt, shame, low self esteem?No. Energy: good Trouble with concentration? No. Changes in appetite? No. Changes in weight? Yes 15lbs down from November Psychomotor retardation: No Suicidal thoughts: No Racing thoughts? No. Interpersonal/ family conflicts? No. Irritability? No. PHQ-9 04/18/2022 Score 9 BRI - 7 SCORES 04/18/2022 BRI-7 Score 6 GERD Heartburn Hx H.Pylori + 2019, Current medications: Pantoprazole 20mg daily AC Aleve every now and then Current symptoms: still all messed up . Gets air pockets epigastric area that make him sweat, epigastric Last Mg level if on PPI chronically: none. Heartburn is controlled: not really. Dysphagia: No. Bloody or black stools: No. Bowel changes: Was watery, mushy improved with cahnge in alcohol use. . Last EGD and/or colonoscopy: 11/17/2021: path = Stomach, antrum, biopsy - Mild chronic inactive gastritis. - Negative for H. pylori organisms on immunostain. NM HIDA WNL HISTORIES FAMILY HISTORY Problem Relation Age of Onset None Mother other (cabg) Father started at age ? 50. None Brother 2 brothers. PAST MEDICAL HISTORY Diagnosis Date H. pylori infection 10/18/2019 treated. Stool negative 11/12/19 PAST SURGICAL HISTORY Procedure Laterality Date EGD 11/17/2021 PAST SURGICAL HISTORY OF myringotomy tubes. Social History Tobacco Use Smoking status: Current Every Day Smoker Packs/day: 1.00 Years: 15.00 Pack years: 15.00 Types: Cigarettes Smokeless tobacco: Current User Types: Chew Tobacco comment: quit smoking 11/2021. Substance Use Topics Alcohol use: Yes Comment: less than a 12 pk weekly Drug use: No ACTIVE PROBLEM LIST Chronic Otitis Media Tobacco Use Family History of Early Cad Palpitations Gastroesophageal Reflux Disease Anxiety and Depression Alcohol Abuse Environmental Allergies Current Outpatient Medications Medication Sig Dispense Refill citalopram (CELEXA) 20 mg tablet 1 tablet by mouth daily [address] (PROTONIX) 20 mg tablet Take 1 tablet by mouth daily before breakfast. Take on empty stomach, 1/2 hr before meal. 90 tablet 1 No current facility-administered medications for this visit. COVID-19 VACCINE(1) Never done PNEUMOCOCCAL(1 - PCV) Never done HEPATITIS C SCREENING Never done HIV SCREENING Never done DTAP,TDAP,TD(1 - Tdap) due on 06/21/2018 EXAM: BP 110/66 Pulse 72 Resp 16 Wt 74.8 kg (165 lb) SpO2 98% BMI 23.68 kg/m Pleasant well appearing adult man in no acute distress. Alert and oriented all spheres. Normal affect and cognition. Speech normal. No deficits to learning or comprehension. Skin warm, dry, pink to lips and nailbeds. Normal turgor. Respirations regular and unlabored. HEENT: NCAT. No scleral icterus or conjunctival injection. TM's clear. Nose and oropharynx free from injection or lesion. Oral membranes moist and pink. No cervical lymph nodes. Thyroid non-tender, no masses, or enlargement. Carotids pulses 2+/4+ without bruits. Abdomen: active bowel sounds throughout, soft, nontender, no masses or organomegaly. No CVAT. Extrem: no clubbing or cyanosis. Edema: none. Extremities are warm and pink with prompt capillary refill. ASSESSMENT/PLAN: 1. Anxiety with depression - ICD9: 300.4, ICD10: F41.8 (primary diagnosis) Stable, improved; continue current medication 2. Alcohol abuse - ICD9: 305.00, ICD10: F10.10 Discussed tendencies with people who abuse alcohol to return to it under stressful conditions. Strongly encourage patient remain in counseling, also to consider outpatient support groups. 3. Epigastric pain - ICD9: 789.06, ICD10: R10.13 - Increase treatment with Protonix 40 mg QD If not improving over the course of the next 4 weeks patient is to notify, consider EGD. Discussed the effects of alcohol on the upper GI tract, strongly urged to abstain. Also discussed patient's use of caffeine which also promotes complications. If not improving- COMP METABOLIC PANEL - LIPASE BLD Follow-up in 6 months or as needed Otilia Mckeon PA-C [facility] [facility] 02-15-2022 Nurse Note Right ear flushed with warm water. Minimal amount of cerumen removed. Patient tolerated procedure well. documented in this encounter [facility] 02-15-2022 Instructions Maxine Mares APRN.METAL WIRE COATING OPERATOR - 02/15/2022 3:29 PM EDT 1. Continue the same medication. 2. Recheck in 2 months. documented in this encounter [facility] 02-15-2022 History of Presen t illness Narrative This is a 36 year old male who presents today with: Patient presents with: Recheck: follow up HISTORY OF PRESENT ILLNESS: Mg Glover is a 36 year old male. Patient presents with: Recheck: follow up Pt presents today for recheck. Continues to be sober. Back to work this week. Trying to stay focused. Still going to 180 -- counseling with Max. May start going [id number]. Doing well with the citalpram. Wakes up tired, but that isn't anything different than prior to medication. Appetite is good. Sleeping okay. A little easier falling asleep. Feels that he is being a little more social. No suicidal/homicidal thoughts. He would like to get the right ear checked. Has been plugged and not hearing well out of the ear. + allergies. PAST MEDICAL HISTORY: PAST MEDICAL HISTORY Diagnosis Date H. pylori infection 10/18/2019 treated. Stool negative 11/12/19 PAST SURGICAL HISTORY Procedure Laterality Date EGD 11/17/2021 PAST SURGICAL HISTORY OF myringotomy tubes. ALLERGIES Patient has no known allergies. MEDICATIONS Current Outpatient Medications Medication Sig citalopram (CELEXA) 20 mg tablet 1/2 pill daily X 1 week; then increase to a whole pill daily. pantoprazole DR (PROTONIX) 20 mg tablet Take 1 tablet by mouth daily before breakfast. Take on empty stomach, 1/2 hr before meal. No current facility-administered medications for this visit. FAMILY HISTORY Problem Relation Age of Onset None Mother other (cabg) Father started at age ? 50. None Brother 2 brothers. Social History Tobacco Use Smoking status: Current Every Day Smoker Packs/day: 1.00 Years: 15.00 Pack years: 15.00 Types: Cigarettes Smokeless tobacco: Current User Types: Chew Tobacco comment: quit smoking 11/2021. Substance Use Topics Alcohol use: Yes Comment: less than a 12 pk weekly Drug use: No EXAM: BP 142/94 Pulse 72 Resp 18 Wt 73.9 kg (163 lb) SpO2 97% BMI 23.39 kg/m PHYSICAL EXAM: General Appearance: Well appearing, alert, in no acute distress, well-hydrated, well nourished.. Skin: Skin color, texture, turgor normal, no suspicious rashes or lesions. Head: Normocephalic, no masses, lesions, tenderness or abnormalities. Eyes: Anicteric sclera. Extraocular movements are intact. . Ears: External ears normal, canals clear, Positive findings: R TM: obscured by partial obstruction with cerumen, L TM: normal. Lungs: Lungs clear to auscultation. No wheezing, rhonchi, rales.. Heart: RRR without murmur, gallop, or rubs. No ectopy. Neurologic: Gait normal. ASSESSMENT/PLAN: 1. Alcohol abuse - ICD9: 305.00, ICD10: F10.10 (primary diagnosis) Continues to be sober. Continue w/ counseling. Keep up the good work. 2. Anxiety with depression - ICD9: 300.4, ICD10: F41.8 Feels doing well with medication. Continue without change. - CITALOPRAM 20 MG TABLET 3. Excessive cerumen in right ear canal - ICD9: 380.4, ICD10: H61.21 Irrigated by nursing. 4. Environmental allergies - ICD9: V15.09, ICD10: Z91.09 Encouraged to start OTC flonase and antihistamine (such as claritin, keith, zyrtec.). Discussed treatment plan and patient voices understanding. Patient's questions answered appropriately. Medications and potential side effects were discussed and patient voices understanding. Return to the office as scheduled or as needed for worsening/no improvement. Maxine Mares APRN.METAL WIRE COATING OPERATOR This note was partially generated using Dash Hudson voice recognition system. Note was reviewed for accuracy. There may be minor misspellings or grammar miscues with Dash Hudson voice recognition. documented in this encounter [facility] 01-17-2022 History of Presen t illness Narrative Emergency Department Social Work Evaluation [facility] Date of Evaluation: 01/17/2022 Reason for Consult: Suicidal Ideation/Alcohol Use Disorder Plan: LPN PRIVATE DUTY met with patient who states that he was attempting to get into the [facility] yesterday. They did not have anyone in intake due to it being Easter so they suggested the patient come to the ER. He is denying SI at this time. He states that he feels safe to discharge to the [facility]. He is future oriented and wanting to get help for his alcohol use disorder. Family is at bedside and feels comfortable transporting patient to rehab. They were also provided with resources if [facility] is not able to take the patient. He does not meet criteria for a pink slip at this time. Case closed. Signed by: MISHEL Steen LISW-S Emergency Department Tipple Supervisor [facility] Observation Note History and Exam: Please refer to the emergency department record for history and physical exam. No family history on file. No family history of premature coronary artery disease Reason for Observation: The patient was placed into observation for continued monitoring and treatments, and search for inpatient psych bed. Time/Date Placed in Observation: Observation order was placed at 01/17/22 6:32 AM EDT Observation Plan 1. Patient placed in observation for their: Suicidal ideation 2. Medical co-morbidities include: Not applicable 3. Treatment plan: a. Continue mental health medication treatment using: Observation, as needed medications if indicated b. Consult: Social work c. Patient reassessments every shift d. Medical management of co-morbidities using: Not applicable There were no issues on my shift with this patient. Pt arrives to department independently ambulatory with complaints of SI without plan. Pt endorses intent. Pt endorses previous suicide attempts in the past with most recent a few days ago via hanging that was interuptedby girlfriend. Pt is visibly intoxicated and endorses consuming 15 beers today which he states is normal for him. Endorses drinking daily as a coping mechanism. Denies Hi. Endorses command auditory hallucinations telling him to hurt myself Denies visual hallucinations. Pt states that he has attempted to detox from alcohol in the past but experienced tactile disturbances. Denies seizures. Pt is calm and cooperative. Patient signed out to me by the overnight doc pending sobriety for evaluation by social work. Patient seen by social work and upon sobriety had no suicidal ideation or concerning history requiring additional psychiatric care. Patient discharged stable condition. Return precautions given. [place] slip rescinded. Bob Mills DO 01/17/22 0945 Bob Mills DO 01/17/22 0950 ED Note CC: Chief Complaint Patient presents with Suicidal Alcohol Intoxication HPI: Mg Glover is a 36 y.o. male with a history of chronic alcoholism, he states he drinks approximately 15 beers per day, ADHD, depression presents with SI and alcohol intoxication. The patient states that he was trying to check into rehab but he was sent here instead. He is here with his girlfriend and some family members. He states that he does feel suicidal especially when he drinks heavily which is nearly daily. He states 1 or 2 days ago he wanted to hang himself with a chain but could not because he was too intoxicated he states. He denies any suicidal attempt today. He states he started medication for ADHD about a week ago that seems to have made things worse. He denies any headache, chest pain, abdominal pain, fevers or chills. ROS: All other systems reviewed and are negative except as noted. Past History: No past medical history on file. No current outpatient medications No Known Allergies No past surgical history on file. Social History Tobacco Use Smoking status: Current Every Day Smoker Smokeless tobacco: Never Used Vaping Use Vaping Use: Never used Substance Use Topics Alcohol use: Not on file Drug use: Never No family history on file. Physical Exam: Patient Vitals for the past 24 hrs: BP Temp Pulse Resp SpO2 Height Weight 01/16/22 2259 129/76 91 20 98 % 1.778 m (70 ) 74.4 kg (164 lb) 01/16/22 2251 129/76 91 01/16/22 2157 (!) 144/84 36.6 C (97.8 F) 67 20 97 % CONSTITUTIONAL: No acute distress. EYES: PERRL. EOMI. No conjunctival injection. No icterus. HENT: External ears normal, external nose normal. Mouth and throat clear. Neck supple non-tender. Head atraumatic. RESPIRATORY: Normal chest excursion with respiration. Clear to auscultation. CARDIOVASCULAR: Regular rhythm. No murmurs. No cyanosis. No peripheral edema. GASTROINTESTINAL: Abdomen soft, non-distended, non-tender, no guarding or rigidity. NEUROLOGICAL: Awake, alert and oriented. CN II-XII intact, no extremity weakness or sensory deficit. PSYCHOLOGICAL: Intoxicated, poor insight. INTEGUMENTARY: Warm and dry. No rash noted. MUSCULOSKELETAL: There are no deformities noted. MDM: The patient is intoxicated but also describes suicidal ideation with a plan of hanging himself a few days ago, he states he does still feel suicidal. At this point and pink slip the patient. He is medically cleared. CIWA has been ordered. There is no social work here at this time, if the patient is reevaluated and clinically sober with a different history is pink slip could be rescinded, but certainly concerning history currently while he was intoxicated. The patient also expresses desire to go to alcohol rehab. No orders to display I visualized these images. Labs Reviewed ETHANOL - Abnormal Result Value Ethanol Level 276 (*) COMPREHENSIVE METABOLIC PANEL - Abnormal Sodium 143 Potassium 3.9 Chloride 107 CO2 28 Anion Gap 8 Glucose 88 BUN 18 Creatinine 1.00 eGFR 97 BUN/Creatinine Ratio 18.0 Calcium 8.5 (*) AST (SGOT) 33 ALT (SGPT) 21 Alkaline Phosphatase 72 Total Protein 6.5 Albumin 4.0 Total Bilirubin 0.3 ACETAMINOPHEN LEVEL - Normal Acetaminophen Level <10.0 SALICYLATE LEVEL - Normal Salicylate Level <4.0 COMPLETE BLOOD COUNT - Normal WBC 9.8 RBC 4.85 Hemoglobin 14.9 Hematocrit 42.6 MCV 88.0 MCH 30.8 MCHC 35.0 RDW 13.6 Platelets 190 MPV 8.3 MAGNESIUM - Normal Magnesium 2.0 DRUG ABUSE SCREEN 8A PANEL, URINE Medications thiamine (VITAMIN B-1) tablet 100 mg (has no administration in time range) multivitamin (THERA-M) 1 tablet (has no administration in time range) LORazepam (ATIVAN) tablet 1 mg (has no administration in time range) Or LORazepam (ATIVAN) tablet 2 mg (has no administration in time range) Or LORazepam (ATIVAN) tablet 3 mg (has no administration in time range) Clinical Impressions as of 01/16/222329 Alcoholic intoxication without complication (CMS/HCC) Alcohol abuse Suicidal ideation IMPRESSION: 1. Alcoholic intoxication without complication (CMS/HCC) 2. Alcohol abuse 3. Suicidal ideation DISPOSITION: Pending ED Prescriptions None Procedures: @PROCEDURES@ Poncho Jasso MD 01/16/222329 documented in this encounter [facility] 01-10-2022 Instructions Maxine Mares APRN.METAL WIRE COATING OPERATOR - 01/10/2022 10:24 AM EDT 1. Start the strattera. 2. Recheck in 1 month, sooner if needed. documented in this encounter [facility] 01-10-2022 History of Presen t illness Narrative This is a 36 year old male who presents today with: Patient presents with: Discussion: possible ADHD HISTORY OF PRESENT ILLNESS: Mg Glover is a 36 year old male. Patient presents with: Discussion: possible ADHD Pt presents today today to Starts projects and can't finish them. Refers that he will speed through projects to get them done. Hard to sleep because of his head racing. Hard to go asleep. Feels like rushing around in dreams. Starting to affect his job performance. Feels like symptoms are worse since he quit smoking. Doesn't feel that anxiety has been terrible. Tried several different medications for anxiety, but feels like it made things worse. Denies using any controlled substance. ETOH -- a couple of night. He reports that he does have a history of ADHD. He was treated from a young age to teens. He reports that he was on only Ritalin, and this made him feel poorly. Mood Disorders 01/10/2022 Hyper? Yes Shouted, starting fights, arguments? No More Self-confident? Yes Less sleep, not missing it? No More talkative, speak faster? Yes Thoughts racing? Yes Trouble concentrating or staying on track? Yes Much more energy than usual? No Much more active and/or did many more things than usual? Yes Much more social or outgoing than usual? No Much more interested in sex? No Did unusual things? Yes Spending money that got you/family in trouble? No Have several of these happened during same time? Yes How much of a problem did these cause? Minor Problem Blood relatives have manic-depressive illness or bi-polar disorder? No Has a professional ever told you that you are manic-depressive illness or have bi-polar disorder? No Adult ADD 01/10/2022 Trouble wrapping up final details of projects 3 - Often Difficulty getting order on tasks requiring organization 2 - Sometimes Have problems remembering appts/obligations 3 - Often Avoid/delay tasks requiring a lot of thought 4 - Very Often Fidget/squirm when sitting a long time 4 - Very Often Feel overly active/compelled to do things 3 - Often Careless Mistakes on boring/difficult projects 2 - Sometimes Difficult keeping attention on boring/repetitive work 3 - Often Difficulty concentrating on what people say 4 - Very Often Misplace/difficulty finding things at home/work 2 - Sometimes Distracted by activity/noise 3 - Often Leave your seat when expected to remain seated 2 - Sometimes Feel restless/fidgety 3 - Often Difficulty unwinding/relaxing when you have time 2 - Sometimes Talk too much in social situations 3 - Often Finish other's sentences 4 - Very Often Difficulty waiting your turn 4 - Very Often Interrupt others when they are busy 2 - Sometimes PAST MEDICAL HISTORY: PAST MEDICAL HISTORY Diagnosis Date H. pylori infection 10/18/2019 treated. Stool negative 11/12/19 PAST SURGICAL HISTORY Procedure Laterality Date EGD 11/17/2021 PAST SURGICAL HISTORY OF myringotomy tubes. ALLERGIES Patient has no known allergies. MEDICATIONS Current Outpatient Medications Medication Sig pantoprazole DR (PROTONIX) 40 mg tablet Take 1 tablet by mouth twice daily. ondansetron (ZOFRAN) 4 mg tablet Take 1 tablet by mouth every 8 hours as needed. fluticasone (FLONASE) 50 mcg/actuation nasal spray Use 2 Sprays in each nostril once daily. Rinse mouth after use. No current facility-administered medications for this visit. FAMILY HISTORY Problem Relation Age of Onset None Mother other (cabg) Father started at age ? 50. None Brother 2 brothers. Social History Tobacco Use Smoking status: Current Every Day Smoker Packs/day: 1.00 Years: 15.00 Pack years: 15.00 Types: Cigarettes Smokeless tobacco: Current User Types: Chew Substance Use Topics Alcohol use: Yes Comment: less than a 12 pk weekly Drug use: No EXAM: BP 118/86 Pulse 86 Resp 18 Wt 74.4 kg (164 lb) SpO2 98% BMI 23.53 kg/m PHYSICAL EXAM: General Appearance: Well appearing, alert, in no acute distress, well-hydrated, well nourished.. Skin: Skin color, texture, turgor normal, no suspicious rashes or lesions. Head: Normocephalic, no masses, lesions, tenderness or abnormalities. Eyes: Anicteric sclera. Pupils are equally round and reactive to light. Extraocular movements are intact. . Lungs: Lungs clear to auscultation. No wheezing, rhonchi, rales.. Heart: RRR without murmur, gallop, or rubs. No ectopy. Neurologic: Gait normal. ASSESSMENT/PLAN: 1. Adult ADHD - ICD9: 314.01, ICD10: F90.9 (primary diagnosis) Discussed different options for treatment. He would like to start Strattera. We will plan to recheck in a month. He is aware to call sooner if any problems or concerns. - ATOMOXETINE 40 MG CAPSULE 2. Functional dyspepsia - ICD9: 536.8, ICD10: K30 Refill PPI. Discussed treatment plan and patient voices understanding. Patient's questions answered appropriately. Medications and potential side effects were discussed and patient voices understanding. Return to the office as scheduled or as needed for worsening/no improvement. ELI Miles APRN.NORBERTO The patient indicates understanding of these issues and agrees with the plan. documented in this encounter [facility] Diagnosis Alcoholic intoxication without complication (CMS/HCC)- Primary Alcohol abuse Nondependent alcohol abuse, unspecified drinking behavior Suicidal ideation [facility] Diagnosis Alcohol abuse- Primary Alcohol abuse, unspecified Anxiety with depression Excessive cerumen in right ear canal Environmental allergies Other allergy, other than to medicinal agents documented in this encounter [facility] note* Diagnosis Anxiety with depression- Primary Alcohol abuse Alcohol abuse, unspecified Epigastric pain Abdominal pain, epigastric [facility] Diagnosis Chronic purulent otitis media of right ear- Primary Dizziness Dizziness and giddiness Polydipsia Urinary frequency Screening for lipid disorders Sweating increase Generalized hyperhidrosis [facility]* Diagnosis Anxiety with depression [facility]* Diagnosis Pruritus- Primary Unspecified pruritic disorder Chronic Helicobacter pylori gastritis documented in this encounter [facility] note* Diagnosis Acromioclavicular sprain, left, initial encounter- Primary Pain Generalized pain [facility] Attachments The following attachments cannot be sent through Care Everywhere. * Alcohol: Treatment Options: Video ([place]an) [facility] Purpose Family History No Family History Records FoundNo Family History Records FoundNo Family History Records FoundNo Family History Records Found Advance Directives No Advanced Directives Records FoundDocuments on File Type Date Recorded Patient Cannoneer Expl anation Advance Directive(s) 11/17/2021 1:10 PM Documents on File Type Date Recorded Patient Cannoneer Expl anation Power of Executive Community Planning Reason for Referral Specialty Diagnoses / Procedures Referred By Contac t Referred To Contact Ent - Otolaryngology Diagnoses Chronic purulent otitis media of right ear Dizziness Procedures CONSULT TO ENT OFFICE/OUTPATIENT [facility] 60-74 MINUTES Otilia Mckeon PA-C [address] [place] [address] Referral ID Status Reason Start Date Expiration Date Visits Requested Visits Authorized [id number] Authorized PCP Requested Referral 2 08/29/2023 1 1 Additional Source Comments (unrecognized sect ion and content) No Status Records FoundNo Status Records FoundNo Status Records FoundNo Status Records Found INFORMATION SOURCE (unrecogn ized section and content) DATE CREATED AUTHOR AUTHOR'S ORGANIZ ATION 08/06/2018 [facility] DATE CREATED AUTHOR AUTHOR'S ORGANIZ ATION 01/17/2022 Milo Murray [facility] DATE CREATED AUTHOR AUTHOR'S ORGANIZ ATION 05/04/2023 [facility] Source Comments (unrecognize d section and content) In the event this informatio n is protected by the Federal Confidentiality of Alcohol and Drug Abuse Patient Records regulations: The Federal rules restrict any use of the information to criminally investigate or prosecute any alcohol or drug abuse patient.[facility] the event this information is protected by the Federal Confidentiality of Alcohol and Drug Abuse Patient Records regulations: The Federal rules restrict any use of the information to criminally investigate or prosecute any alcohol or drug abuse patient.[facility] the event this information is protected by the Federal Confidentiality of Alcohol and Drug Abuse Patient Records regulations: The Federal rules restrict any use of the information to criminally investigate or prosecute any alcohol or drug abuse patient.[facility] the event this information is protected by the Federal Confidentiality of Alcohol and Drug Abuse Patient Records regulations: The Federal rules restrict any use of the information to criminally investigate or prosecute any alcohol or drug abuse patient.[facility] the event this information is protected by the Federal Confidentiality of Alcohol and Drug Abuse Patient Records regulations: The Federal rules restrict any use of the information to criminally investigate or prosecute any alcohol or drug abuse patient.[facility] the event this information is protected by the Federal Confidentiality of Alcohol and Drug Abuse Patient Records regulations: The Federal rules restrict any use of the information to criminally investigate or prosecute any alcohol or drug abuse patient.[facility] the event this information is protected by the Federal Confidentiality of Alcohol and Drug Abuse Patient Records regulations: The Federal rules restrict any use of the information to criminally investigate or prosecute any alcohol or drug abuse patient.[facility] the event this information is protected by the Federal Confidentiality of Alcohol and Drug Abuse Patient Records regulations: The Federal rules restrict any use of the information to criminally investigate or prosecute any alcohol or drug abuse patient.[facility] the event this information is protected by the Federal Confidentiality of Alcohol and Drug Abuse Patient Records regulations: The Federal rules restrict any use of the information to criminally investigate or prosecute any alcohol or drug abuse patient.[facility] Reason for Visit (unrecogniz ed section and content) Specialty Diagnoses / Procedures Referred By Contact Referred To Contact Gastroenterology / ENDOSCOPY Diagnoses Functional dyspepsia [K30] Nausea [R11.0] Heartburn [R12] Epigastric pain [R10.13] LUQ pain [R10.12] Constipation, unspecified constipation type [K59.00] Procedures EGD DIAGNOSTIC Miriam Beramn APRN.METAL WIRE COATING OPERATOR [address] [place] [address] Carlton Resendiz MD [address] [place] [address] Referral ID Status Reason Start Date Expiration Date V isits Requested Visits Authorized [id number] Closed Financial Clearance Required - Self Pay Patient Cleared - Qualified HCAP/501/FA Patient Cleared - Qualified 100% FAS 11/15/2021 02/13/2022 99 99 Reason Comments Recheck follow up Reason Comments Discussion possible ADHD Referral ID Status Reason Start Date Expiration Date Visits Requested Visits Authorized [id number] Authorized Financial Clearance Required - Self Pay Patient Cleared - Qualified HCAP/501/FA Patient Cleared - Qualified 100% FAS 11/15/2021 02/13/2022 99 99 Reason Comments Suicidal Alcohol Intoxication Reason Comments Ear Problem Bilateral Dizziness Reason Comments Intestinal Disorder Reason Onset Date Comments Refill Request 09/28/2022 Reason Comments Derm Problem Diarrhea Loose stools Reason Comments New Patient Left shoulder pain - Referred by Hilary Zelaya Specialty Diagnoses / Procedures Referred By Jackie elmore Referred To Contact Orthopedics Diagnoses Pain Procedures CONSULT TO ORTHOPAEDICS OFFICE/OUTPATIENT NEW HIGH MDM 60-74 MINUTES Hilary Zelaya, SOFTWARE ANALYST.METAL WIRE COATING OPERATOR [address] [place] [address] Referral ID Status Reason Start Date Expiration Date V isits Requested Visits Authorized [id number] Closed PCP Requested Referral 05/02/2023 05/01/2024 1 1 Care Teams (unrecognized sec tion and content) Logging Supervisor Relationship Specialty Start Date End Date Physician, No Pcp PCP - General 01/16/22 Logging Supervisor Relationship Specialty Start Date End Date Zee Anderson MD [address] [place] [address] PCP - General Family Practice 05/02/17 Logging Supervisor Relationship Specialty Start Date End Date Zee Anderson MD [address] [place], [place] [id number] PCP - General Family Medicine 05/02/17 Logging Supervisor Relationship Specialty Start Date End Date Zee Anderson MD [address] [place] [address] PCP - General Family Medicine 05/02/17 Logging Supervisor Relationship Specialty Start Date End Date Zee Anderson MD [address] [place] [address] PCP - General Family Medicine 05/02/17 Logging Supervisor Relationship Specialty Start Date End Date Zee Anderson MD [address] [place], [place] [id number] PCP - General Family Medicine 05/02/17 Logging Supervisor Relationship Specialty Start Date End Date Zee Anderson MD [address] [facility] [place] [address] PCP - General Family Medicine 05/02/17 Scheduled Active and Recently Administ ered Medications (unrecognized section and content) PRN Medication Order 01/15/2022 01/16/2022 01/17/2022 LORazepam (ATIVAN) tablet 1 mg(Linked Group 1) 1 mg, oral, Every 1 hour PRN, CIWA-Ar score 8-10, Starting on 01/16/22 at 2239, Hold for BP less than 90/60, RR less than 10 per minute, marked somnolence, intoxicated sympotoms (ataxia, slurred speech) and notify provider. Maximum dose in 6 hours: 20 mg LORazepam (ATIVAN) tablet 2 mg(Linked Group 1) 2 mg, oral, Every 1 hour PRN, CIWA-Ar score 11-15, Starting on 01/16/22 at 2239, Hold for BP less than 90/60, RR less than 10 per minute, marked somnolence, intoxicated sympotoms (ataxia, slurred speech) and notify provider. Maximum dose in 6 hours: 20 mg LORazepam (ATIVAN) tablet 3 mg(Linked Group 1) 3 mg, oral, Every 1 hour PRN, CIWA-Ar score 16-24, Starting on 01/16/22 at 2239, Hold for BP less than 90/60, RR less than 10 per minute, marked somnolence, intoxicated sympotoms (ataxia, slurred speech) and notify provider. Maximum dose in 6 hours: 20 mg Linked Groups Order Group 1: LORazepam (ATIVAN) tablet 1 mgJump to med 1 mg, oral, Every 1 hour PRN, CIWA-Ar score 8-10, Starting on 01/16/22 at 2239
Hold for BP less than 90/60, RR less than 10 per minute, marked somnolence, intoxicated sympotoms (ataxia, slurred speech) and notify provider. Maximum dose in 6 hours: 20 mg
Or LORazepam (ATIVAN) tablet 2 mgJump to med 2 mg, oral, Every 1 hour PRN, CIWA-Ar score 11-15, Starting on 01/16/22 at 2239
Hold for BP less than 90/60, RR less than 10 per minute, marked somnolence, intoxicated sympotoms (ataxia, slurred speech) and notify provider. Maximum dose in 6 hours: 20 mg
Or LORazepam (ATIVAN) tablet 3 mgJump to med 3 mg, oral, Every 1 hour PRN, CIWA-Ar score 16-24, Starting on 01/16/22 at 2239
Hold for BP less than 90/60, RR less than 10 per minute, marked somnolence, intoxicated sympotoms (ataxia, slurred speech) and notify provider. Maximum dose in 6 hours: 20 mg
FOR RECORDS PERTAINING TO PATIENTS WHO ARE OR HAVE BEEN ENROLLED IN A CHEMICAL DEPENDENCY/SUBSTANCEABUSE PROGRAM, SOME INFORMATION MAY BE OMITTED. This clinical summary was aggregated from multiple sources. Caution should be exercised in using it in the provision of clinical care. This summary normalizes information from multiple sources, and as a consequence, information in this document may materially change the coding, format and clinical context of patient data. In addition, data may be omitted in some cases. CLINICAL DECISIONS SHOULD BE BASED ON THE PRIMARY CLINICAL RECORDS. [facility] [employer] [facility]. provides no warranty or guarantee of the accuracy or completeness of information in this document.
== END | disposition home or self-care (01) ==
LOC: LABSPEC 16:03
PROVIDERS: Referring Provider Otolaryngology; Visit Provider Otolaryngology
DX: J32.8 Other chronic sinusitis (principal)
CPT/HCPCS: 87070; 87205

== ENCOUNTER 2023-11-27 10:20 | Emergency (ER) | payer MEDICAID, SELFPAY ==
[2023-11-27 10:21] VITALS: BP 136/94; PULSE 79; RESP 18; TEMP 36.5; O2SAT 100
--- NOTE | 2023-11-27 10:25 | EKG12_ITS ---
Test Reason : DIZZINESS Blood Pressure : / mmHG Vent. Rate : 069 BPM Atrial Rate : 069 BPM P-R Int : 152 ms QRS Dur : 080 ms QT Int : 346 ms P-R-T Axes : 008 056 041 degrees QTc Int : 370 ms Normal sinus rhythm Normal ECG Confirmed by TAYLER GAN, JULIETH ([id number]), food editor MAMIE POZO ([id number]) on 12/04/2023 2:00:02 PM Referred By: Confirmed By:ROSALIA LESTER MD
--- NOTE | 2023-11-27 10:40 | EX.ED.DYSGE1 ---
HPI History of Present Illness Chief Complaint: Dizziness Informant: patient Onset/Context/Timing Onset: Days (3-4) Context: Gradual Onset Timing: Continuous Quality: Spinning, lightheaded Location: Head Worsened by: Bending forward and standing up quickly, moving his head quickly Relieved by: Nothing Narrative Narrative: Patient presents with dizziness that has been getting worse over the last 3 to 4 days. Patient states it came on gradually. Patient states that he feels lightheaded. Patient states that at times he feels like there is a spinning sensation. Patient states it is worse when he bends over and stands up quickly. Patient states it is also worse with certain movements of his head. Patient admits to some tinnitus. Patient admits to a cough but denies any sputum production. Patient denies any fevers or chills. PFSH PFS Medical History Acid reflux Anxiety Depression Home Medications omeprazole magnesium 20 mg tablet,delayed release (Prilosec OTC) 20 mg PO PRN PRN Heartburn 02/14/17 [History Last Taken 02/20/17 23:30] citalopram 20 mg tablet 20 mg PO DAILY 11/27/23 [History Last Taken Unknown] meclizine 25 mg tablet 25 mg PO 4X/DAY PRN PRN Dizziness #20 tabs 11/27/23 [Rx Last Taken Unknown] pantoprazole 40 mg tablet,delayed release 40 mg PO DAILY 11/27/23 [History Last Taken Unknown] Allergy/AdvReac Type Severity Reaction Status Date / Time No Known Allergies Allergy Verified 11/27/23 10:20 Surgical History H/O sinus surgery S/P ear surgery Social History Smoking Status: Current every day smoker tobacco type: cigarettes ROS ROS ED Constitutional Constitutional ED: Denies chills or fever(s) Eyes Eyes: Reports change in vision; Denies blurry vision ENT ENT ED: Denies rhinorrhea or sore throat Cardiovascular Cardiovascular: Denies chest pain or palpitations Respiratory/Chest Respiratory/Chest: Reports cough; Denies dyspnea Gastrointestinal Gastrointestinal: Reports nausea; Denies vomiting Genitourinary Genitourinary ED: Denies dysuria or hematuria Musculoskeletal Musculoskeletal: Reports back pain; Denies neck pain Integumentary Denies abscess or rash Neurologic Neurologic: Reports headache(s); Denies weakness Allergic/Immunologic Allergic/Immunologic ED: Denies mouth swelling or urticaria EXAM Physical Exam Const Vital Signs: 11/27/23 10:21 11/27/23 10:51 11/27/23 10:51 Temperature 97.7 F L Temperature Source Temporal Pulse Rate 79 73 Pulse Rate [Lying] Pulse Rate [Sitting (for 1 minute prior to obtaining)] Pulse Rate [Standing (for 1 minute prior to obtaining)] Respiratory Rate 18 14 Respiratory Effort Normal Non-Labored Respiratory Pattern Normal Blood Pressure 136/94 H 140/87 H Blood Pressure [Lying] Blood Pressure [Sitting (for 1 minute prior to obtaining)] Blood Pressure [Standing (for 1 minute prior to obtaining)] Blood Pressure Mean 108 104 Blood Pressure Mean [Lying] Blood Pressure Mean [Sitting (for 1 minute prior to obtaining)] Blood Pressure Mean [Standing (for 1 minute prior to obtaining)] Pulse Ox 100 100 Oxygen Delivery Method Room Air Room Air 11/27/23 11:13 Temperature Temperature Source Pulse Rate Pulse Rate [Lying] 64 Pulse Rate [Sitting (for 1 minute prior to obtaining)] 69 Pulse Rate [Standing (for 1 minute prior to obtaining)] 82 Respiratory Rate Respiratory Effort Respiratory Pattern Blood Pressure Blood Pressure [Lying] 130/79 H Blood Pressure [Sitting (for 1 minute prior to obtaining)] 122/98 H Blood Pressure [Standing (for 1 minute prior to obtaining)] 131/89 H Blood Pressure Mean Blood Pressure Mean [Lying] 96 Blood Pressure Mean [Sitting (for 1 minute prior to obtaining)] 106 Blood Pressure Mean [Standing (for 1 minute prior to obtaining)] 103 Pulse Ox Oxygen Delivery Method Positive well nourished and well developed General Appearance ED: well developed and NAD HEENT Reports moist mucous membranes Neck supple and no JVD Chest Wall inspection of chest normal and palpation of chest normal Resp normal respiratory effort and clear to auscultation bilaterally Cardio regular rate and regular rhythm GI non-tender and non-distended Palpation: soft Neuro oriented x3, CN's II-XII intact bilaterally and no sensory deficits noted Sensorium / Orientation: alert Motor Exam: strength 5/5 throughout Psych mental status grossly normal Skin no rashes or lesions noted MDM MDM MDM Narrative Medical decision making narrative: Differential diagnosis includes labyrinthitis, vertigo, intracranial bleeding, viral illness, electrolyte abnormality, cardiac dysrhythmia, cardiac ischemia. CT scan of the brain will be obtained to assess for intracranial bleeding. CBC will be obtained to assess for leukocytosis and anemia. Comprehensive metabolic profile will be obtained to assess for [place] function, renal function, and electrolyte abnormality. Urinalysis will be obtained to assess for urinary tract infection and hematuria. High-sensitivity troponin will be obtained to assess for cardiac ischemia. COVID-19, influenza, and RSV PCR will be obtained to assess for viral infection. Orthostatic vital signs will be obtained to assess for dehydration. Lab Data Attestation: I reviewed the patient's lab results. Lab results narrative: CBC was reviewed and was within normal limits. Comprehensive metabolic profile was reviewed and was within normal limits. High-sensitivity troponin was reviewed and was normal. Urinalysis was reviewed. There is no evidence of urinary tract infection or hematuria. Labs: Laboratory Results - last 24 hr 11/27/23 11/27/23 11:15 11:36 WBC 6.7 RBC 4.95 Hgb 15.2 Hct 45.0 MCV 90.9 MCH 30.7 MCHC 33.8 RDW Std Deviation 44.0 H RDW Coeff of Henry 13.1 Plt Count 172 MPV 11.0 Immature Gran % (Auto) 0.400 Neut % (Auto) 58.9 Lymph % (Auto) 31.5 [place] % (Auto) 5.3 Eos % (Auto) 3.0 Baso % (Auto) 0.9 Absolute Neuts (auto) 4.0 Absolute Lymphs (auto) 2.12 Nucleated RBC % 0 Sodium 138 Potassium 4.3 Chloride 106 Carbon Dioxide 29.0 Anion Gap 3 L BUN 15 Creatinine 1.12 Estim Creat Clear Calc 159.20 Est GFR (MDRD) Af Amer 95 Est GFR (MDRD) Non-Af 78 BUN/Creatinine Ratio 13.4 Glucose 100 Calcium 8.8 Total Bilirubin 0.50 AST 24 ALT 40 Alkaline Phosphatase 78 Troponin I High Sens 4 Total Protein 7.1 Albumin 3.8 Globulin 3.3 Albumin/Globulin Ratio 1.2 Urine Color Yellow Urine Clarity Clear Urine pH 6.0 Ur Specific [place] 1.010 Urine Protein Negative Urine Glucose (UA) Normal Urine Ketones Negative Urine Occult Blood Negative Urine Nitrite Negative Urine Bilirubin Negative Urine Urobilinogen Normal Ur Leukocyte Esterase Negative Urine RBC 0 SEEN Urine WBC 0 SEEN Ur Squamous Epith Cells 0-5 SEEN Urine Bacteria 0 SEEN Urine Mucus 0 SEEN Radiography Diagnostic Testing: Clinical Impression(s) from Imaging Studies Brain CT 11/27/23 11:00 IMPRESSION: Mild degree of mucosal thickening of the ethmoid sinuses bilaterally. Electronically Signed: Alvino Hein MD at 12:10 EST , CT scan of the brain was obtained. There is no acute intracranial abnormality. There is mild mucosal thickening of the ethmoid sinuses. This was interpreted by the radiologist and was also independently reviewed by myself. EKG Initial EKG: Attestation: I personally reviewed and interpreted this EKG as follows: Interpretation: Sinus Rhythm (69) and No Acute Injury Pattern Comments: EKG was obtained. On my independent interpretation, it showed a normal sinus rhythm with a rate of 69. KS interval, QRS interval, and QTc intervals were all normal. [place] was normal. There are no acute ST or T wave changes. Prior EKG tracings: available for review Prior: Unchanged (09/27/2015) Treatment and Re-Evaluation :: Patient was given IV fluids. Orthostatic vital signs were obtained and were within normal limits. Patient is feeling better on reevaluation. Patient was advised of his findings. Patient was instructed drink plenty of fluids. Patient was given a prescription for meclizine to take as needed. Patient was instructed to follow-up with his primary care physician in 5 to 7 days. Patient understood and was agreeable with the plan. All questions were answered. Discharge Plan Triage Chief Complaint: Dizziness ED Provider: Perez Mendieta Dx/Rx/DC Orders Clinical Impression: Vertigo Instructions: ED Vertigo, Unspecified Prescriptions: New meclizine [meclizine] 25 mg tablet 25 mg PO 4X/DAY PRN PRN (Reason: Dizziness) Qty: 20 0RF No Action omeprazole magnesium [Prilosec OTC] 20 MG tablet,delayed release (DR/EC) 20 mg PO PRN PRN (Reason: Heartburn) citalopram 20 mg tablet 20 mg PO DAILY pantoprazole 40 mg tablet,delayed release (DR/EC) 40 mg PO DAILY Primary Care Provider: Otilia Mckeon Referrals: NOT,DEFINED [Non-Staff] - Otilia Mckeon, PA [Primary Care Provider] - 3-5 Days Disposition Disposition: Home, Self Care
[2023-11-27 10:51] VITALS: BP 140/87; PULSE 73; RESP 14; O2SAT 100; BMI 63.8
--- NOTE | 2023-11-27 11:00 | CT_ITS ---
STUDY: CT BRAIN WITHOUT CONTRAST REASON FOR EXAM: Male, 38 years old. Dizziness. Chronic headaches. RADIATION DOSAGE (If Supplied By Facility): CTDIvol = ( 44.99 ) mGy, DLP = ( 762.36 ) mGycm TECHNIQUE: Transaxial CT imaging of the brain was performed without administration of intravenous contrast material. Individualized dose optimization techniques were used for this CT. COMPARISON: Comparison is made with prior study dated June 05, 2014. FINDINGS: Normal soft tissue structures. Normal calvarium. Normal size ventricles and extra-axial spaces for the patient''s age. Normal white matter tracts of the cerebral hemispheres. Normal basal ganglia and thalami. Normal brainstem. Normal cerebellum. There is no intracranial hemorrhage. There are no findings of an acute ischemic infarction. Mild degree of mucosal thickening of the ethmoid sinuses bilaterally. CT/Brain/Head without Contrast IMPRESSION: Mild degree of mucosal thickening of the ethmoid sinuses bilaterally. Electronically Signed: Alvino Hein MD at 12:10 EST ,
[2023-11-27 11:13] VITALS: BP 122/98; BP 130/79; BP 131/89; PULSE 64; PULSE 69; PULSE 82
[2023-11-27] MEDS: 0.9% Normal Saline (1000mL) 1,000 ML 1000 ML IV (11:17)
[2023-11-27 11:30] LABS: Absolute Lymphocyte Count 2.12 X10^3/uL (0.83-4.51); Basophil# 0.06 X10^3/uL; Basophil% 0.9 % (0-1); Hemoglobin 15.2 g/dL (13.0-16.5); Lymphocyte # 2.12 X10^3/ul (0.83-4.51); Lymphocyte % 31.5 % (19-41); Mean Corp Hgb Conc 33.8 g/dL (32-36); Mean Corpuscular Hgb 30.7 pg (27.0-32.0); Mean Corpuscular Volume 90.9 fL (80-94); Monocyte# 0.36 X10^3/uL; Monocyte% 5.3 % (0-10); NRBC Flagged by Analyzer 0 % (0-5); Neutrophil # 3.97 X10^3/uL (2.7-7.7); Neutrophil % 58.9 % (47-70); Platelet Count 172 K/mm3 (150-450); RBC Distribution Width CV 13.1 % (11.6-14.6); Red Blood Count 4.95 M/mm3 (4.6-6.2); White Blood Count 6.7 K/mm3 (4.4-11.0)
[2023-11-27 11:40] LABS: Bacteria 0 SEEN /hpf (None Seen); Mucous, Urine 0 SEEN /hpf (<or=2+); Red Blood Cells-Urine 0 SEEN /hpf (0-5); White Blood Cells 0 SEEN /hpf (0-5)
[2023-11-27 11:47] LABS: ALB/GLOB Ratio 1.2 RATIO (0.9-2.4); AST(SGOT) 24 U/L (15-37); Alanine Aminotransfer ALT/SGPT 40 U/L (16-61); Albumin, Serum 3.8 g/dL (3.2-5.0); Alkaline Phosphatase 78 U/L (45-117); Anion Gap 3 (5-15); BUN 15 mg/dL (7-18); BUN/Creat Ratio 13.4 RATIO (10-20); Calcium,Total 8.8 mg/dL (8.5-10.1); Chloride 106 mmol/L (98-107); Creatinine, Serum 1.12 mg/dL (0.70-1.30); EST Glomerular Filtration Rate 78 mL/min (>60); Est Glom Filt Rate - Afr Amer 95 mL/min (>60); Globulin 3.3 g/dL (2.2-4.2); Glucose 100 mg/dL (74-106); Potassium 4.3 mmol/L (3.5-5.1); Protein, Total 7.1 g/dL (6.4-8.2); Sodium Level 138 mmol/L (136-145); Troponin-I HS 4 pg/mL (3.0-78.0)
[2023-11-27 11:50] LABS: Color, Urine Yellow (Yellow); Glucose, Dipstick Normal (Normal); Ketone-Dipstick Negative (Negative); Leukocyte Esterase-Dipstick Negative /ul (Negative); Nitrite-Dipstick Negative (Negative); Occult Blood-Urine Negative /ul (Negative); Protein-Dipstick Negative (Negative); Urine Bilirubin Dipstick Negative (Negative); Urine Clarity Clear (Clear); Urine Urobilinogen Normal (Normal)
[2023-11-27 11:59] LABS: Squamous Epithelial Cells - UA 0-5 SEEN /hpf (0-5)
[2023-11-27 13:08] VITALS: BP 142/88; PULSE 71; RESP 18; TEMP 36.3; O2SAT 100
--- OUTSIDE RECORDS SUMMARY | 2023-11-27 18:41 | XMS RPT_ITS | CCD ---
Author Name Unknown Address [address] [place] [address] Organization [facility] Care Team Providers Care Data Reviewer Name Role Phone Chet Amin Unavailable Unavailable Chet Amin Unavailable Unavailable Zee Anderson Unavailable Unavailable Zee Anderson MD Primary Care Provider [phone] Physician, No Pcp Primary Care Provider UnavailPONCHO [...] 83.46 kg NA Mckeon PA-C Work Phone: [facility] 01-13-2023 10:38-0400 Diastolic blood pressure 76 mm[Hg] NA Mckeon PA-C Work Phone: [facility] 01-13-2023 10:38-0400 Heart rate 74 /min NA Mckeon PA-C Work Phone: [facility] 01-13-2023 10:38-0400 Respiratory rate 16 /min NA Mckeon PA-C Work Phone: [facility] 01-13-2023 10:38-0400 SaO2% (BldA) [Mass fraction] 99 % NA Mckeon PA-C Work Phone: [facility] 01-13-2023 10:38-0400 Systolic blood pressure 120 mm[Hg] NA Mckeon PA-C Work Phone: [facility] 08-29-2022 08:48-0500 Body weight 80.74 kg NA Mckeon PA-C Work Phone: [facility] 08-29-2022 08:48-0500 Diastolic blood pressure 78 mm[Hg] NA Mckeon PA-C Work Phone: [facility] 08-29-2022 08:48-0500 Heart rate 76 /min NA Mckeon PA-C Work Phone: [facility] 08-29-2022 08:48-0500 Respiratory rate 18 /min NA Mckeon PA-C Work Phone: [facility] 08-29-2022 08:48-0500 SaO2% (BldA) [Mass fraction] 98 % NA Mckeon PA-C Work Phone: [facility] 08-29-2022 08:48-0500 Systolic blood pressure 118 mm[Hg] NA Mckeon PA-C Work Phone: [facility] 04-18-2022 15:36-0400 Body weight 74.84 kg NA Mckeon PA-C Work Phone: [facility] 04-18-2022 15:36-0400 Diastolic blood pressure 66 mm[Hg] NA Mckeon PA-C Work Phone: [facility] 04-18-2022 15:36-0400 Heart rate 72 /min NA Mckeon PA-C Work Phone: [facility] 04-18-2022 15:36-0400 Respiratory rate 16 /min NA Mckeon PA-C Work Phone: [facility] 04-18-2022 15:36-0400 SaO2% (BldA) [Mass fraction] 98 % NA Mckeon PA-C Work Phone: [facility] 04-18-2022 15:36-0400 Systolic blood pressure 110 mm[Hg] NA Mckeon PA-C Work Phone: [facility] 02-15-2022 14:59-0400 Body weight 73.94 kg Maxine Haagen MANAGER OF INTERNATIONAL.ACCOUNTS RECEIVABLE COLLECTOR Work Phone: [facility] 02-15-2022 14:59-0400 Diastolic blood pressure 94 mm[Hg] Maxine Haagen MANAGER OF INTERNATIONAL.ACCOUNTS RECEIVABLE COLLECTOR Work Phone: [facility] 02-15-2022 14:59-0400 Heart rate 72 /min Maxine Haagen MANAGER OF INTERNATIONAL.ACCOUNTS RECEIVABLE COLLECTOR Work Phone: [facility] 02-15-2022 14:59-0400 Respiratory rate 18 /min Maxine Haagen MANAGER OF INTERNATIONAL.ACCOUNTS RECEIVABLE COLLECTOR Work Phone: [facility] 02-15-2022 14:59-0400 SaO2% (BldA) [Mass fraction] 97 % Maxine Haagen MANAGER OF INTERNATIONAL.ACCOUNTS RECEIVABLE COLLECTOR Work Phone: [facility] 02-15-2022 14:59-0400 Systolic blood pressure 142 mm[Hg] Maxine Haagen MANAGER OF INTERNATIONAL.ACCOUNTS RECEIVABLE COLLECTOR Work Phone: [facility] 01-17-2022 07:12-0400 Diastolic blood pressure 64 mm[Hg] Poncho Jasso MD Work Phone: [facility] 01-17-2022 07:12-0400 Heart rate 94 /min Poncho Jasso MD Work Phone: [facility] 01-17-2022 07:12-0400 Respiratory rate 15 /min Poncho Jasso MD Work Phone: [facility] 01-17-2022 07:12-0400 SaO2% (BldA) [Mass fraction] 98 % Poncho Jasso MD Work Phone: [facility] 01-17-2022 07:12-0400 Systolic blood pressure 123 mm[Hg] Poncho Jasso MD Work Phone: [facility] 01-16-2022 22:59-0400 Body height 177.8 cm Poncho Jasso MD Work Phone: [facility] 01-16-2022 22:59-0400 Body mass index (BMI) [Ratio] 23.53 kg/m2 Poncho Jasso MD Work Phone: [facility] 01-16-2022 22:59-0400 Body weight 74.39 kg Poncho Jasso MD Work Phone: [facility] 01-16-2022 21:57-0400 Body temperature 97.81 [degF] Poncho Jasso MD Work Phone: [facility] 01-10-2022 09:43-0400 Body weight 74.39 kg Maxine Mares MANAGER OF INTERNATIONAL.ACCOUNTS RECEIVABLE COLLECTOR Work Phone: [facility] 01-10-2022 09:43-0400 Diastolic blood pressure 86 mm[Hg] Maxine Haagen MANAGER OF INTERNATIONAL.ACCOUNTS RECEIVABLE COLLECTOR Work Phone: [facility] 01-10-2022 09:43-0400 Heart rate 86 /min Maxine Haagen MANAGER OF INTERNATIONAL.ACCOUNTS RECEIVABLE COLLECTOR Work Phone: [facility] 01-10-2022 09:43-0400 Respiratory rate 18 /min Maxine Haagen MANAGER OF INTERNATIONAL.ACCOUNTS RECEIVABLE COLLECTOR Work Phone: [facility] 01-10-2022 09:43-0400 SaO2% (BldA) [Mass fraction] 98 % Maxine Mares MANAGER OF INTERNATIONAL.ACCOUNTS RECEIVABLE COLLECTOR Work Phone: [facility] 01-10-2022 09:43-0400 Systolic blood pressure 118 mm[Hg] Maxine Mares MANAGER OF INTERNATIONAL.ACCOUNTS RECEIVABLE COLLECTOR Work Phone: [facility] Encounters Encounter Date Encounter Type Care Provider Facility Start: 05-03-2023 End: 05-03-2023 ambulatory SCOTT HAWKINS Harjinder Facility:[facility] Start: 05-03-2023 End: 05-03-2023 Patient encounter procedure Scott Ross LANDRY Work Phone: [facility] [place] Procedures Date Procedure Procedure Detail Performing Clinician [...] Td Vaccines (2 - Td or Tdap) [facility] Start: 08-30-2027 LIPID SCREEN LIPID SCREEN [facility] Start: 06-02-2023 Influenza vaccination [facility] Start: 01-13-2023 End: 03-15-2023 Comprehensive metabolic 2000 panel - Serum or Plasma [facility] Work Phone: Immunizations Immunization Date Immunization Notes Care Provider Skinny hinds 06-20-2018 tetanus and diphther ia toxoids, adsorbed, preservative free, for adult use (5 Lf of tetanus toxoid and 2 Lf of diphtheria toxoid) Maxine Mares APRN.ACCOUNTS RECEIVABLE COLLECTOR Work Phone: [facility] 06-05-2014 TD(adult) unspecifie d formulation RICHARD Mckeon PA-C Work Phone: [facility] Payers Date Payer Category Payer Medicaid [id number] 2022 Medicaid [employer] [place] [employer] [id number] 2022-Present [phone] [address] [place] [address] Medicaid [id number] 2022 Medicaid [id number] 2022 Medicaid [id number] 2018 Unknown 1986 Unknown [id number] Private Health Insurance [id number] Social History Date Type Detail Facility Start: 04-18-2019 End: 08-29-2022 Tobacco smoking status SCIS Smokes tobacco daily [facility] Work Phone: History of tobacco use Cigarette Smoker [facility] Work Phone: Start: 04-18-2019 End: 10-14-2022 Cigarettes smoked current (pack per day) - Reported 1 [facility] Start: 04-18-2019 End: 08-29-2022 Tobacco use and exposure User of smokeless tobacco [facility] Work Phone: History of tobacco use Chews Tobacco [facility] Work Phone: Start: 01-10-2022 End: 05-03-2023 Alcohol intake Current drinker of alcohol (finding) [facility] Start: 10-06-2021 History SDOH Alcohol Comment less than a 12 pk weekly [facility] Start: 01-10-2022 End: 08-29-2022 Tobacco Comment quit smoking 11/2021. [facility] Start: 1985 Sex Assigned At Not on file [facility] Start: 01-16-2022 Tobacco use and exposure Smokeless tobacco non-user [facility] Start: 01-16-2022 Alcohol intake Not Asked [facility] Start: 01-06-2022 End: 08-29-2022 Exposure to SARS-CoV-2 (event) Not sure [facility] Start: 10-14-2022 End: 05-03-2023 Tobacco use panel [facility] Adult Depression Screening Assessment 2 [facility] Clinical Notes 01-10-2022 to 05-03-2023 Scott Hawkins V, DO - 05/03/2023 3:22 PM KAREENTangela atkinson Ma 05/03/2023 3:04 PM ED Hakan Mckeon PA-C - 01/13/2023 10:43 AM EDMICHEAL Mckeon PA-C - 08/29/2022 8:53 AM EST Note Date & Type Note Facility 05-03-2023 Note HNO ID: [id number] Author: Scott Hawkins V, DO Service: ? [...] or fail to resolve Scott Hawkins DO [facility] 05-03-2023 Note HNO ID: [id number] Author: Tangela Ontiveros Ma Service: ? Author [...] pain and helps. X-rays done on 05/02/23. [facility] 05-03-2023 History of Presen t illness Narrative [...] done on 05/02/23. documented in this encounter [facility] 05-02-2023 Note HNO ID: [id number] Author: Hilary Zelaya APRN.ACCOUNTS RECEIVABLE COLLECTOR Service: ? Author Type: Nurse Practitioner Type: [...] history is provided by the patient. No venue manager was used. Review of Systems Constitutional: Negative. [...] maintained. IMPRESSION IMPRESSION: No acute osseous abnormality. Concrete Mixer Operator Helper: DARIUS Transcribe Date/Time: May 02 2023 5:26P Dictated by : BESS MCMANUS DO - CONSULT TO ORTHOPAEDICS Appointment was made for tomorrow at 3 PM with orthopedics to follow-up for possible further testing due to pain. Was okay with this care plan. Hilary Zelaya APRN.[facility] 05-02-2023 Note HNO ID: [id number] Author: Myranda Beltran RT(R) Service: Radiology Author [...] RT Shaggy(R) May 02, 2023 5:13 PM [facility] 01-13-2023 Note HNO ID: [id number] Author: Otilia Mckeon PA-C Service: ? Author Type: Physician Voice Network Engineer Type: Progress Notes Filed: 01/13/2023 11:56 AM [...] congestion. A little sneezing. Recent sinus surgery [place] [facility] Dr. Patton No cough or difficulty [...] LACTOFERRIN/LEUKOCYTES - CALPROTECTIN,FECAL M Hakan Mckeon PA-C [facility] 01-13-2023 History of Presen t illness Narrative [...] congestion. A little sneezing. Recent sinus surgery [place] [facility] Dr. Patton No cough or difficulty [...] EXAM-DIAG - FECAL LACTOFERRIN/LEUKOCYTES - CALPROTECTIN,FECAL Otilia Mckeon PA-C documented in this encounter [facility] 09-28-2022 Miscellaneous Notes Patient phones requesting refills as follows: Requested Prescriptions Pending Prescriptions Disp Refills citalopram (CELEXA) 20 mg tablet 90 tablet 1 Si tablet by mouth daily CHARY-08/29/22 Labs-08/30/22 NOV-none med filled 02/15/22 Please review and advise. Virginia Humphries LPN documented in this encounter [facility] 09-28-2022 Miscellaneous Notes Patient phones [...] Virginia Humphries LPN documented in this encounter [facility] 08-29-2022 Note HNO ID: [id number] Author: Otilia Mckeon PA-C Service: ? Author Type: Physician Voice Network Engineer Type: Progress Notes Filed: 08/29/2022 10:23 AM [...] and balance no (more content not included)... [facility] 08-29-2022 History of Presen t illness Narrative [...] deficits. Gait and balance normal. Negative Romberg, Shelby Hallpike. Component Latest Ref Rng & Units [...] Otilia Mckeon PA-C documented in this encounter [facility] 06-02-2022 Miscellaneous Notes Pulling sensation [...] Quentin Mckeon PA-C documented in this encounter [facility] 04-18-2022 History of Presen t illness Narrative 36 year old male with c/o follow up on depression and ETOH abuse Anxiety with depression (primary encounter diagnosis) Alcohol abuse Adult adhd Recent history: 01/16/2022 ED visit [facility]: presented intoxicated acknowledging suicidal ideation (fantasy of [...] legs [facility] down and holding something. [...] Otilia Mckeon PA-C documented in this encounter [facility] 02-15-2022 Nurse Note Right ear flushed with warm water. Minimal amount of cerumen removed. Patient tolerated procedure well. documented in this encounter [facility] 02-15-2022 Instructions Maxine Mares APRN.ACCOUNTS RECEIVABLE COLLECTOR - 02/15/2022 3:29 PM EDT 1. Continue the same medication. 2. Recheck in 2 months. documented in this encounter [facility] 02-15-2022 History of Presen t [...] -- counseling with Max. May start going [id number]. Doing well with the citalpram. Wakes up [...] OTC flonase and antihistamine (such as claritin, ekith, zyrtec.). Discussed treatment plan and patient voices understanding. Patient's questions answered appropriately. Medications and potential side effects were discussed and patient voices understanding. Return to the office as scheduled or as needed for worsening/no improvement. Maxine Mares APRN.ACCOUNTS RECEIVABLE COLLECTOR This note was partially generated using Do It In Person voice recognition system. Note was reviewed for accuracy. There may be minor misspellings or grammar miscues with [employer] Person voice recognition. documented in this encounter [facility] 01-17-2022 History of Presen t illness Narrative Emergency Department Social Work Evaluation [facility] Date of Evaluation: 01/17/2022 Reason for Consult: Suicidal Ideation/Alcohol Use Disorder Plan: EDITOR HOUSE ORGAN met with patient who states that he was attempting to get into the [facility] yesterday. They did not have anyone in intake due to it being Easter so they suggested the patient come to the ER. He is denying SI at this time. He states that he feels safe to discharge to the [facility]. He is future oriented and wanting to get help for his alcohol use disorder. Family is at bedside and feels comfortable transporting patient to rehab. They were also provided with resources if [facility] is not able to take the patient. He does not meet criteria for a pink slip at this time. Case closed. Signed by: MISHEL Steen LISW-S Emergency Department Popcorn Attendant [facility] Observation Note History and Exam: Please [...] Patient discharged stable condition. Return precautions given. [place] slip rescinded. Bob Mills DO 01/17/22 0945 [...] Jasso MD 01/16/222329 documented in this encounter [facility] 01-10-2022 Instructions Maxine Mares APRN.[facility] - 01/10/2022 10:24 AM EDT 1. Start the strattera. 2. Recheck in 1 month, sooner if needed. documented in this encounter [facility] 01-10-2022 History of Presen t [...] with the plan. documented in this encounter [facility] Diagnosis Alcoholic intoxication without complication (CMS/HCC)- Primary Alcohol abuse Nondependent alcohol abuse, unspecified drinking behavior Suicidal ideation [facility] Diagnosis Alcohol abuse- Primary Alcohol abuse, unspecified Anxiety with depression Excessive cerumen in right ear canal Environmental allergies Other allergy, other than to medicinal agents documented in this encounter [facility] note* Diagnosis Anxiety with depression- Primary Alcohol abuse Alcohol abuse, unspecified Epigastric pain Abdominal pain, epigastric [facility] Diagnosis Chronic purulent otitis media of right ear- Primary Dizziness Dizziness and giddiness Polydipsia Urinary frequency Screening for lipid disorders Sweating increase Generalized hyperhidrosis [facility]* Diagnosis Anxiety with depression [facility]* Diagnosis Pruritus- Primary Unspecified pruritic disorder Chronic Helicobacter pylori gastritis documented in this encounter [facility] note* Diagnosis Acromioclavicular sprain, left, initial encounter- Primary Pain Generalized pain [facility] Attachments The following attachments cannot be sent through Care Everywhere. 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 Reason for Referral Specialty Diagnoses / Procedures Referred By Contac t Referred To Contact Ent - Otolaryngology Diagnoses Chronic purulent otitis media of right ear Dizziness Procedures CONSULT TO ENT OFFICE/OUTPATIENT [facility] 60-74 MINUTES Otilia Mckeon PA-C [address] [place] [address] Referral ID Status Reason Start Date Expiration Date Visits Requested Visits Authorized [id number] Authorized PCP Requested Referral 2 08/29/2023 1 1 Additional Source Comments (unrecognized sect ion and content) No Status Records FoundNo Status Records FoundNo Status Records FoundNo Status Records Found INFORMATION SOURCE (unrecogn ized section and content) DATE CREATED AUTHOR AUTHOR'S ORGANIZ ATION 08/06/2018 [facility] DATE CREATED AUTHOR AUTHOR'S ORGANIZ ATION 01/17/2022 Milo Murray [facility] DATE CREATED AUTHOR AUTHOR'S ORGANIZ ATION 05/04/2023 [facility] Source Comments (unrecognize d section and content) In the event this informatio n is protected by the Federal Confidentiality of Alcohol and Drug Abuse Patient Records regulations: The Federal rules restrict any use of the information to criminally investigate or prosecute any alcohol or drug abuse patient.[facility] the event this information is protected by the Federal Confidentiality of Alcohol and Drug Abuse Patient Records regulations: The Federal rules restrict any use of the information to criminally investigate or prosecute any alcohol or drug abuse patient.[facility] the event this information is protected by the Federal Confidentiality of Alcohol and Drug Abuse Patient Records regulations: The Federal rules restrict any use of the information to criminally investigate or prosecute any alcohol or drug abuse patient.[facility] the event this information is protected by the Federal Confidentiality of Alcohol and Drug Abuse Patient Records regulations: The Federal rules restrict any use of the information to criminally investigate or prosecute any alcohol or drug abuse patient.[facility] Center[facility] the event this information is protected by the Federal Confidentiality of Alcohol and Drug Abuse Patient Records regulations: The Federal rules restrict any use of the information to criminally investigate or prosecute any alcohol or drug abuse patient.[facility] Center[facility] the event this information is protected by the Federal Confidentiality of Alcohol and Drug Abuse Patient Records regulations: The Federal rules restrict any use of the information to criminally investigate or prosecute any alcohol or drug abuse patient.[facility] Center[facility] the event this information is protected by the Federal Confidentiality of Alcohol and Drug Abuse Patient Records regulations: The Federal rules restrict any use of the information to criminally investigate or prosecute any alcohol or drug abuse patient.[facility] Center[facility] the event this information is protected by the Federal Confidentiality of Alcohol and Drug Abuse Patient Records regulations: The Federal rules restrict any use of the information to criminally investigate or prosecute any alcohol or drug abuse patient.[facility] Center[facility] the event this information is protected by the Federal Confidentiality of Alcohol and Drug Abuse Patient Records regulations: The Federal rules restrict any use of the information to criminally investigate or prosecute any alcohol or drug abuse patient.[facility] Reason for Visit (unrecogniz ed section and content) Specialty Diagnoses / Procedures Referred By Contact Referred To Contact Gastroenterology / ENDOSCOPY Diagnoses Functional dyspepsia [K30] Nausea [R11.0] Heartburn [R12] Epigastric pain [R10.13] LUQ pain [R10.12] Constipation, unspecified constipation type [K59.00] Procedures EGD DIAGNOSTIC Miriam Berman APRN.ACCOUNTS RECEIVABLE COLLECTOR [address] [place] [address] Carlton Resendiz MD [address] [place] [address] Referral ID Status Reason Start Date Expiration Date V isits Requested Visits Authorized [id number] Closed Financial Clearance Required - Self Pay Patient Cleared - Qualified HCAP/501/FA Patient Cleared - Qualified 100% FAS 11/15/2021 02/13/2022 99 99 Reason Comments Recheck follow up Reason Comments Discussion possible ADHD Referral ID Status Reason Start Date Expiration Date Visits Requested Visits Authorized [id number] Authorized Financial Clearance Required - Self Pay [...] NEW HIGH MDM 60-74 MINUTES Hilary Zelaya, MANAGER OF INTERNATIONAL.ACCOUNTS RECEIVABLE COLLECTOR [address] [place] [address] Referral ID Status Reason Start Date Expiration Date V isits Requested Visits Authorized [id number] Closed PCP Requested Referral 05/02/2023 05/01/2024 1 1 Care Teams (unrecognized sec tion and content) Data Reviewer Relationship Specialty Start Date End Date Physician, No Pcp PCP - General 01/16/22 Data Reviewer Relationship Specialty Start Date End Date Zee Anderson MD [address] [place] [address] PCP - General Family Practice 05/02/17 Data Reviewer Relationship Specialty Start Date End Date Zee Anderson MD [address] [place], [place] [address] PCP - General Family Medicine 05/02/17 Data Reviewer Relationship Specialty Start Date End Date Zee Anderson MD [address] [place] [address] PCP - General Family Medicine 05/02/17 Data Reviewer Relationship Specialty Start Date End Date Zee Anderson MD [address] [place] [address] PCP - General Family Medicine 05/02/17 Data Reviewer Relationship Specialty Start Date End Date Zee Anderson MD [address] [place], [place] [address] PCP - General Family Medicine 05/02/17 Data Reviewer Relationship Specialty Start Date End Date Zee Anderson MD [address] [place] [address] PCP - General Family Medicine 05/02/17 Scheduled [...] BE BASED ON THE PRIMARY CLINICAL RECORDS. [facility] [employer] [facility]. provides no warranty or guarantee of the accuracy or completeness of information in this document.
== END 2023-11-27 13:12 | disposition home or self-care (01) ==
PROVIDERS: Emergency Provider Emergency Medicine; PCP Physician Assistant; Visit Provider Emergency Medicine
DX: R42 Dizziness and giddiness (principal); F17.210 Nicotine dependence, cigarettes, uncomplicated; H93.19 Tinnitus, unspecified ear; R05.9 Cough, unspecified; K21.9 Gastro-esophageal reflux disease without esophagitis; F41.9 Anxiety disorder, unspecified; F32.A Depression, unspecified; R11.0 Nausea; M54.9 Dorsalgia, unspecified; R51.9 Headache, unspecified
CPT/HCPCS: 70450; 80053; 81001; 84484; 85025; 87631; 93005; 96360; 96361; 99285; J7030; A4216